=== PATIENT | female | born 1935 | race Caucasian/White ===

== ENCOUNTER 2017-06-18 13:32 | Emergency (ER) | payer OTHER ==
[~2017-06-18] VITALS: Ht 175.3 cm; Wt 95.3 kg
--- NOTE | ~2017-06-18 | EKG ---
[facility] [address] [place] [address] ELECTROCARDIOGRAM REPORT Name: LIAN CRUZ [id number] Admission: 06/18/17 Attend Phys: Discharge: Date of : 34 Report #: [id number] THIS REPORT FOR: //name// [facility] ED Test Date: 2017-06-18 Test Time: 13:41:56 Pat Name: LIAN CRUZ Department: Room: Gender: F Executive Cyber Leader: : 1935 Requested By: Merna Guzman Order Number: [id number] MD: Luis A Coles Measurements Intervals [place] Rate: 69 P: 60 IL: 205 QRS: -4 QRSD: 89 T: 48 QT: 386 QTc: 414 Interpretive Statements Sinus rhythm LVH with secondary repolarization abnormality Inferior infarct, old Anterior infarct, old Compared to ECG 05/21/2016 11:05:36 Left ventricular hypertrophy now present Myocardial infarct finding still present Electronically Signed On 06-18-2017 14:50:51 CDT by Luis A Coles [email or web address] <ELECTRONICALLY SIGNED> By: Luis A Coles MD 06/18/17 1450 134 134 Luis A Coles MD /CORNELIO
[~2017-06-18 13:32] MED LIST: COZAAR 50 MG TA50 M2 PO; LASIX 20 MG TAB20 MG PO; LOPRESSOR50 PO; METOPROLOL SUCC50 MG PO; MUCINEX TA600 MG/TA2 PO; POTASSIUM20 PO; TOPROL XL25 MG PO
[2017-06-18] MEDS ORDERED: EDARBI80 MG PO (13:50)
[2017-06-18 14:07] LABS: ABSOLUTE NEUTROPHILS 9.6 thou/uL (1.4-8.2); BASOPHILS 0.8 % (0.0-2.0); EOSINOPHILS 1.2 % (0.0-3.0); HEMATOCRIT 42.2 % (37.0-47.0); HEMOGLOBIN 13.6 gm/dL (12.0-15.0); LYMPHOCYTES 28.6 % (24.0-44.0); MCH 30.2 pg (26.0-34.0); MCHC 32.2 g/dL (28.0-37.0); MCV 93.8 fL (80.0-100.0); MONOCYTES 5.5 % (1.0-8.0); PLATELET COUNT 224 thou/uL (150-400); POLYS 63.9 % (36.0-66.0); RBC 4.49 mil/uL (4.20-5.00); RDW 14.3 % (10.5-14.5); WBC 15.1 thou/uL (4.0-11.0)
[2017-06-18 14:12] LABS: ANION GAP 14 mmol/L (7-16); BUN 39 mg/dL (7-18); CALCIUM 8.7 mg/dL (8.5-10.1); CHLORIDE 106 mmol/L (98-107); CO2 18 mmol/L (21-32); CREATININE 1.8 mg/dL (0.6-1.0); GLUCOSE 142 mg/dL (74-106); SODIUM 138 mmol/L (136-145)
[2017-06-18 14:15] LABS: MANUAL DIFF NO
[2017-06-18 14:16] LABS: POTASSIUM 4.3 mmol/L (3.5-5.1)
[2017-06-18 14:22] LABS: TROPONIN-I < 0.04 ng/mL (<0.04-0.07)
[2017-06-18 15:00] LABS: URINE BILIRUBIN NEGATIVE (Negative); URINE BLOOD 1+ (Negative); URINE COLOR YELLOW; URINE GLUCOSE-RANDOM* NEGATIVE (Negative); URINE KETONES NEGATIVE (Negative); URINE NITRITE NEGATIVE (Negative); URINE PROTEIN (DIPSTICK) NEGATIVE (Negative); URINE SPECIFIC GRAVITY 1.015 (1.003-1.035); URINE UROBILINOGEN 0.2 E.U./dl (0.2-1.0)
[2017-06-18 15:12] LABS: CASTS None Seen /LPF (None Seen); CRYSTALS None Seen /LPF (None Seen); SQUAMOUS 0-3 Few /LPF (0-3); URINE RBC 0-2 Rare /HPF (0-2)
[2017-06-18] MEDS ORDERED: CIPROFLOXACIN500 M1 PO (15:35)
[2017-06-18 15:50] VITALS: BP 180/81
== END 2017-06-18 15:59 | disposition home or self-care (01) ==
LOC: ER 13:32
PROVIDERS: Emergency Medicine
DX: N39.0 Urinary tract infection, site not specified (principal); D72.829 Elevated white blood cell count, unspecified; N28.9 Disorder of kidney and ureter, unspecified; R19.7 Diarrhea, unspecified; R55 Syncope and collapse; I10 Essential (primary) hypertension; E66.9 Obesity, unspecified; Z87.442 Personal history of urinary calculi; Z88.0 Allergy status to penicillin; Z88.2 Allergy status to sulfonamides; Z68.31 Body mass index [BMI] 31.0-31.9, adult

== ENCOUNTER 2018-10-09 13:55 | Inpatient (IN) | payer OTHER ==
[~2018-10-09] VITALS: Ht 175.3 cm; Wt 114.3 kg
--- NOTE | ~2018-10-09 | D ---
[facility] [place] [address] [place] [address] DISCHARGE SUMMARY Name: LIAN CRUZ Room #: 221-P [facility] IN M.R.#: [id number] Admission: 10/09/18 Attend Phys: Mikki Biswas Discharge: Date of : 34 Report #: [id number] THIS REPORT FOR: //name// CC: Kevin Valerio FINAL DIAGNOSES: 1. Syncope. 2. Vertigo. 3. Atrial fibrillation. 4. Orthostatic hypotension. 5. Acute kidney injury due to prerenal azotemia. 6. Orthostatic hypotension. HOSPITAL COURSE: The patient was admitted with nausea, weakness, dizziness from home. She had orthostatic blood pressure changes in ER. Her home medications were held with the exception of Eliquis. She received low IV fluids overnight. By the second hospital day, her creatinine had decreased down to 1.5. In reviewing her office records, it looks like her normal creatinine, maybe around 1.3. Blood pressures remained stable off her metoprolol and Edarbi and Lasix. She was walking 30 feet with physical therapy. She still complained of some nausea symptoms. CT head and CT abdomen were fairly unremarkable for any acute process. Follow up lab data was showing normal white count. There was no urine culture showing infection. She declined home health or fdc rehabilitation efforts. PHYSICAL EXAMINATION: GENERAL: On the day of discharge, she was resting comfortably in bed. She had an uneventful night according to nursing notes. VITAL SIGNS: Blood pressures are about 150/90 with pulse in the 80s-90s. O2 sats were normal. LUNGS: Clear. HEART: Regular. ABDOMEN: Soft, obese, normoactive bowel sounds. EXTREMITIES: Showed no edema. DISPOSITION: She will be discharged to home with diet and activity as tolerated. She will have Tylenol, Zofran, meclizine, Eliquis and Toprol 50 mg half tablet. For now, she is instructed to hold her Lasix, potassium, Edarbi and ibuprofen until she returns to the office for blood pressure check and follow up lab data. By: 1006 1101 Allan Cornejo MD /nt
[~2018-10-09 13:55] MED LIST changes: +CIPROFLOXACIN500 M1 PO; +EDARBI80 MG PO
[2018-10-09 13:56] VITALS: BP 154/61
[2018-10-09] MEDS ORDERED: ELIQUIS5 MG PO (14:04)
[2018-10-09 14:17] LABS: ABSOLUTE NEUTROPHILS 7.8 thou/uL (1.4-8.2); BASOPHILS 0.9 % (0.0-2.0); EOSINOPHILS 1.1 % (0.0-3.0); HEMATOCRIT 44.9 % (37.0-47.0); HEMOGLOBIN 14.8 gm/dL (12.0-15.0); LYMPHOCYTES 33.9 % (24.0-44.0); MCH 28.8 pg (26.0-34.0); MCHC 32.9 g/dL (28.0-37.0); MCV 87.6 fL (80.0-100.0); MONOCYTES 5.2 % (1.0-8.0); PLATELET COUNT 278 thou/uL (150-400); POLYS 58.9 % (36.0-66.0); RBC 5.13 mil/uL (4.20-5.00); RDW 15.6 % (10.5-14.5); WBC 13.3 thou/uL (4.0-11.0)
[2018-10-09 14:31] LABS: ANION GAP 14 mmol/L (7-16); BUN 25 mg/dL (7-18); CALCIUM 9.1 mg/dL (8.5-10.1); CHLORIDE 101 mmol/L (98-107); CO2 21 mmol/L (21-32); CREATININE 1.6 mg/dL (0.6-1.0); GLUCOSE 186 mg/dL (74-106); POTASSIUM 5.1 mmol/L (3.5-5.1); SODIUM 136 mmol/L (136-145)
[2018-10-09 14:39] LABS: ALBUMIN 3.5 g/dL (3.4-5.0); SGOT 26 U/L (15-37); SGPT 14 U/L (30-65); TOTAL BILIRUBIN 0.6 mg/dL (<0.1-1.0); TOTAL PROTEIN 7.8 g/dL (6.4-8.2); TROPONIN-I <0.06 ng/mL (<0.06)
[2018-10-09] MEDS ORDERED: IBU400 MG PO (14:48)
[2018-10-09 14:53] LABS: URINE BILIRUBIN NEGATIVE (Negative); URINE BLOOD 1+ (Negative); URINE CLARITY CLEAR; URINE COLOR YELLOW; URINE GLUCOSE-RANDOM* NEGATIVE (Negative); URINE KETONES NEGATIVE (Negative); URINE LEUKOCYTES-REFLEX NEGATIVE (Negative); URINE NITRITE-REFLEX NEGATIVE (Negative); URINE PROTEIN (DIPSTICK) TRACE (Negative); URINE UROBILINOGEN 0.2 E.U./dl (0.2-1.0)
[2018-10-09 15:01] LABS: CRYSTALS None Seen /LPF (None Seen); HYALINE CASTS 0-3 Few /LPF (None Seen); SQUAMOUS 0-3 Few /LPF (0-3)
[2018-10-09 15:02] LABS: BACTERIA-REFLEX 1-9 Few /HPF (None Seen); URINE RBC 0-2 Rare /HPF (0-2); URINE WBC-REFLEX None Seen /HPF (0-5)
--- NOTE | 2018-10-09 16:58 | EKG ---
[place] [address] [facility] [place] [address] ELECTROCARDIOGRAM REPORT Name: LIAN CRUZ Room #: 170-11 ADM IN M.R.#: [id number] Admission: 10/09/18 Attend Phys: Mikki Biswas Discharge: Date of : 34 Report #: [id number] THIS REPORT FOR: //name// [facility] ED Test Date: 2018-10-09 Test Time: 14:06:56 Pat Name: LIAN CRUZ Department: Room: 170 Gender: F Automation Test Engineer: . : 1935 Requested By: Sachi Schwab Order Number: [id number] MD: Leoncio Bolaños Measurements Intervals [place] Rate: 107 P: [place]: QRS: 7 QRSD: 101 T: -27 QT: 367 QTc: 490 Interpretive Statements Atrial fibrillation Anterior infarct, old Nonspecific ST segment abnormality Artifact in lead(s) Compared to ECG 06/18/2017 13:41:56 Atrial fibrillation has replaced sinus rhythm Electronically Signed On 10-09-2018 16:58:15 STONE RIGGER by Leoncio Bolaños [email or web address] <ELECTRONICALLY SIGNED> By: Leoncio Bolaños MD, [facility] 10/09/18 1658 1406 1406 Leoncio Bolaños MD, FAC /EPI
--- NOTE | 2018-10-09 16:59 | EKG ---
[place] [address] [facility] [place] [address] ELECTROCARDIOGRAM REPORT Name: LIAN CRUZ Room #: 170-11 ADM IN M.R.#: [id number] Admission: 10/09/18 Attend Phys: Mikki Biswas Discharge: Date of : 34 Report #: [id number] THIS REPORT FOR: //name// [facility] ED Test Date: 2018-10-09 Test Time: 15:05:03 Pat Name: LIAN CRUZ Department: Room: 170 Gender: F Chimney Builder Helper: herbert : 1935 Requested By: Sachi Schwab Order Number: [id number] MD: Leoncio Bolaños Measurements Intervals [place] Rate: 94 P: [place]: QRS: 38 QRSD: 88 T: -28 QT: 355 QTc: 444 Interpretive Statements Atrial fibrillation Septal infarct, old Nonspecific ST segment abnormality Compared to ECG 06/18/2017 13:41:56 Heart rate has slowed Electronically Signed On 10-09-2018 16:59:27 PRACTICE CONSULTANT by Leoncio Bolaños [email or web address] <ELECTRONICALLY SIGNED> By: Leoncio Bolaños MD, [facility] 10/09/18 1659 1505 1505 Leoncio Bolaños MD, FACC /EPI
[2018-10-09 17:18] VITALS: BP 120/72
[2018-10-09 17:54] VITALS: BP 120/72
[2018-10-09 18:28] VITALS: BP 136/81
[2018-10-10] VITALS (7 sets, daily range): BP systolic 136–164; BP diastolic 70–86
--- NOTE | 2018-10-10 03:19 | NUR ---
PT ARRIVED AT SHIFT CHANGE PT ORIENTATED TO ROOM AND CALL LIGHT PT PT USED CALL LIGHT EFFECTIVELY NO ISSUES OVERNIGHT.
[2018-10-10 07:11] LABS: HEMATOCRIT 39.2 % (37.0-47.0); MCH 28.6 pg (26.0-34.0); MCHC 32.7 g/dL (28.0-37.0); MCV 87.6 fL (80.0-100.0); RBC 4.48 mil/uL (4.20-5.00); RDW 15.3 % (10.5-14.5); WBC 9.4 thou/uL (4.0-11.0)
[2018-10-10 07:13] LABS: HEMOGLOBIN 12.8 gm/dL (12.0-15.0)
[2018-10-10 07:21] LABS: CALCIUM 8.4 mg/dL (8.5-10.1); CREATININE 1.6 mg/dL (0.6-1.0)
[2018-10-10 07:22] LABS: POTASSIUM 4.1 mmol/L (3.5-5.1)
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
[2018-10-10] MEDS ORDERED: ACETAMINOPHEN325 M1 PO (10:17)
[2018-10-10] MEDS ORDERED: ONDANSETRON HCL4 M2 PO (10:21)
[2018-10-10 10:57] LABS: ALBUMIN 3.1 g/dL (3.4-5.0); DIRECT BILIRUBIN < 0.1 mg/dL (<0.1-0.3); LIPASE 160 U/L (73-393); SGOT 15 U/L (15-37); SGPT 13 U/L (30-65); TOTAL BILIRUBIN 0.4 mg/dL (<0.1-1.0); TOTAL PROTEIN 6.8 g/dL (6.4-8.2)
--- NOTE | 2018-10-10 11:56 | NUR ---
PT VS STABLE THROUGHOUT MORINING. PT WAS TO BE DISCHARGED HOWEVER SHE C/O DIZZYNESS, WEAKNESS, NAUSEA SO ADDITIONAL MEDS AND TESTS ORDERED. PT TRANSFERRED TO . STS. REPORST CALLED.
--- NOTE | 2018-10-10 12:26 | NUR ---
RECEIVED PT FROM W. ORIENTED PT TO ROOM/CALL LIGHT. PT IS ALERT/ORIENTED X4. DENIES PAIN AT THIS TIME. REPORTS DIZZINESS WITH ACTIVITY. ASSESSMENT IS OTHERWISE NEGATIVE. VITAL SIGNS STABLE. INSTRUCTED PT TO CALL FOR ASSISTANCE IF NEEDING TO GET UP. PT AGREED TO THIS AND KNOWS SHE NEEDS ASSISTANCE. WILL CONTINUE WITH CURRENT PLAN OF CARE.
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
--- NOTE | 2018-10-11 00:55 | NUR ---
Pt A/OX,up with SBA/GB denies any dizziness or light headedness when ambulating. No c/o N/V,pain on assessment.VSS.Voiding without difficulties.Verbalizes feeling a little better today. Encouraged to call for help as needed.Spouse at the bedside for the night. Call light/personal items placed within reach.Will continue to monitor pt.
[2018-10-11 06:52] LABS: HEMATOCRIT 39.5 % (37.0-47.0); MCH 29.1 pg (26.0-34.0); MCV 88.3 fL (80.0-100.0); RBC 4.47 mil/uL (4.20-5.00); RDW 15.9 % (10.5-14.5); WBC 9.2 thou/uL (4.0-11.0)
[2018-10-11 07:07] LABS: CALCIUM 8.6 mg/dL (8.5-10.1); CREATININE 1.5 mg/dL (0.6-1.0); POTASSIUM 4.2 mmol/L (3.5-5.1)
[2018-10-11] MEDS ORDERED: METOPROLOL SUCC50 MG PO (10:02)
[2018-10-11] MEDS ORDERED: ANTIVERT25 MG PO (10:02)
[2018-10-11 11:00] VITALS: BP 151/73
--- NOTE | 2018-10-11 11:18 | NUR ---
ASSUMED CARE OF PATIENT AT 0715, PATIENT DENIES PAIN THIS AM. PATIENT HAS NO IV IN PLACE. PATIENT DENIES DIZZINESS THIS AM, THIS RN INSTRUCTED PATIENT IF DIZZY WHEN STANDING, WAIT UNTIL RESOLVED BEFORE AMBULATING, PATIENT VERBALIZE UNDERSTANDING. DR PA HERE THIS AM, PATIENT WILL DISCHARGE TO HOME, ALL DISCHARGE PAPERWORK SENT WITH PATIENT, ALL PERSONAL BELONGINGS SENT WITH PATIENT. PRESENT AT BEDSIDE, WILL TRANSPORT PATIENT HOME. 2 SCRIPTS GIVEN TO PATIENT.
--- NOTE | 2018-10-11 12:29 | NUR ---
DISCHARGE NOTE: SW reviewed chart and spoke with nursing and attending physician. Pt was transferred to [facility] from . Pt is medically stable for discharge home today. No SW discharge needs identified at this time, but is available to assist should needs arise.
== END 2018-10-11 11:54 | disposition home or self-care (01) | DRG 683 ==
LOC: ER 13:55 → 4W 15:37 → EROBS 15:37 → 4W 17:58 → ENTRNSPT 10-10 11:57 → EDTRNSPTSTS 10-10 12:04 → SICU 10-10 12:21 → EDTRNSPT 10-11 11:18 → EDTRNSPTTYP 10-11 11:18 → SICU 10-11 11:54
PROVIDERS: Internal Medicine Geriatric Medicine; Physician Assistant; ADMIT Internal Medicine
DX: N17.9 Acute kidney failure, unspecified (principal); I50.32 Chronic diastolic (congestive) heart failure; I95.1 Orthostatic hypotension; I48.91 Unspecified atrial fibrillation; E86.0 Dehydration; I11.0 Hypertensive heart disease with heart failure; E66.9 Obesity, unspecified; Z68.37 Body mass index [BMI] 37.0-37.9, adult; Z88.0 Allergy status to penicillin; Z87.442 Personal history of urinary calculi; Z88.2 Allergy status to sulfonamides; Z79.899 Other long term (current) drug therapy
CPT/HCPCS: 10045; 10047; 15000; 15002

== ENCOUNTER 2019-08-04 19:05 | Inpatient (IN) | payer OTHER ==
[~2019-08-04] VITALS: Ht 175.3 cm; Wt 119.3 kg
[~2019-08-04 19:05] MED LIST changes: +ACETAMINOPHEN325 M1 PO; +ANTIVERT25 MG PO; +ELIQUIS5 MG PO; +IBU400 MG PO; +ONDANSETRON HCL4 M2 PO
[2019-08-04 19:06] VITALS: BP 176/104
[2019-08-04 19:39] LABS: ABSOLUTE NEUTROPHILS 8.9 thou/uL (1.4-8.2); BASOPHILS 0.8 % (0.0-2.0); EOSINOPHILS 0.6 % (0.0-3.0); HEMOGLOBIN 9.5 gm/dL (12.0-15.0); LYMPHOCYTES 18.3 % (24.0-44.0); MCH 23.5 pg (26.0-34.0); MCHC 30.8 g/dL (28.0-37.0); MCV 76.2 fL (80.0-100.0); MONOCYTES 5.2 % (1.0-8.0); PLATELET COUNT 346 thou/uL (150-400); POLYS 75.1 % (36.0-66.0); RBC 4.06 mil/uL (4.20-5.00); RDW 17.9 % (10.5-14.5); WBC 11.8 thou/uL (4.0-11.0)
[2019-08-04 19:47] LABS: ANION GAP 12 mmol/L (7-16); BUN 22 mg/dL (7-18); CALCIUM 9.3 mg/dL (8.5-10.1); CHLORIDE 100 mmol/L (98-107); CO2 22 mmol/L (21-32); CREATININE 1.6 mg/dL (0.6-1.0); GLUCOSE 223 mg/dL (74-106); POTASSIUM 3.9 mmol/L (3.5-5.1); SODIUM 134 mmol/L (136-145)
[2019-08-04 19:51] LABS: APTT 27.7 Seconds (24.5-32.8); INR 1.1; PROTIME 11.9 Seconds (9.3-11.4)
[2019-08-04 19:56] LABS: ALBUMIN 3.3 g/dL (3.4-5.0); LIPASE 143 U/L (73-393); SGOT 16 U/L (15-37); SGPT 14 U/L (30-65); TOTAL BILIRUBIN 0.5 mg/dL (<0.1-1.0); TOTAL PROTEIN 7.4 g/dL (6.4-8.2); TROPONIN-I <0.06 ng/mL (<0.06)
[2019-08-04 22:06] VITALS: BP 140/66
[2019-08-04 22:46] VITALS: BP 136/59
[2019-08-04] MEDS ORDERED: KLOR-CON 1010 MEQ PO (23:29)
[2019-08-04] MEDS ORDERED: FUROSEMIDE 20 M20 M1 PO (23:30)
--- NOTE | 2019-08-04 23:32 | NUR ---
PATIENT ARRIVED TO ICU AT 1015 08/04. PATIENT IS ADMITTED WITH CC/TELE ADMISSION STATUS ORDERS. PATIENT RESTING COMFORTABLY IN BED. DR GARCIA NOTIFIED OF ARRIVAL TO ICU.
[2019-08-04 23:52] VITALS: BP 143/60
[2019-08-05 02:03] VITALS: BP 134/74
[2019-08-05 04:11] VITALS: BP 140/71
[2019-08-05 08:06] VITALS: BP 138/69
--- NOTE | 2019-08-05 09:00 | NUR ---
BEDSIDE ECHO IN PROGRSS
[2019-08-05 09:34] LABS: ABSOLUTE RETIC COUNT 0.0798 10^6/uL; OBSERVED RETIC COUNT 1.99 % (0.6-2.6)
[2019-08-05 09:44] LABS: % SATURATION 3 % (20-39); IRON 14 ug/dL (50-170); TIBC 411 ug/dL (250-450)
--- NOTE | 2019-08-05 10:14 | 2DMMODE ---
[facility] [address] [place] [address] 2 D/M-MODE ECHOCARDIOGRAM Name: LIAN CRUZ Room #: 247-P [facility] IN ..#: [id number] Admission: 08/04/19 Attend Phys: Kevin Bernard Discharge: Date of : 34 Report #: [id number] THIS REPORT FOR: //name// APPROVED REPORT Study performed: 08/05/2019 09:11:20 EXAM: Comprehensive 2D, Doppler, and color-flow Echocardiogram Patient Location: ICU Room #: [facility] Status: routine BSA: 2.32 HR: 84 bpm BP: 138/69 mmHg Rhythm: Atrial Fibrillation Other Information Study Quality: Adequate Technically limited study due to obesity. Indications Atrial Fibrillation Hx: HTN, Afib. 2D Dimensions RVDd: 40.48 mm IVSd: 12.62 (7-11mm) LVOT Diam: 21.11 (18-24mm) LVDd: 51.77 mm PWd: 9.08 (7-11mm) LVDs: 38.53 (25-40mm) Aortic Root: 31.41 mm Volumes Left Atrial Volume (Systole) Single Plane 4CH: 107.56 mL Single Plane 2CH: 103.40 mL LA ESV Index: 51.00 mL/m2 Aortic Valve AoV Peak Charles.: 2.22 m/s AO Peak Gr.: 19.65 mmHg LVOT Max P.66 mmHg AO Mean Gr.: 10.96 mmHg AO V2 Mean: 1.58 m/s LVOT Max V: 0.81 m/s AO V2 VTI: 43.13 cm SEBLE Vmax: 1.29 cm2 [facility] [address] [address] 2 D/M-MODE ECHOCARDIOGRAM Name: LIAN CRUZ Room #: 247-P [facility] IN [facility].#: [id number] Admission: 08/04/19 Attend Phys: Kevin Bernard Discharge: Date of : 34 Report #: [id number] Mitral Valve MV Decel. Time: 176.88 ms MV E Max Charles.: 1.27 m/s Pulmonary Valve PV Peak Charles.: 1.18 m/s PV Peak Gr.: 5.78 mmHg Tricuspid Valve TR Peak Charles.: 2.92 m/s TR Peak Gr.: 34.03 mmHg Left Ventricle The left ventricle is normal size. Mild concentric left ventricular hypertrophy. Left ventricular systolic function is mildly decreased. LVEF is 45-50%. This study is not technically sufficient to allow evaluation of the LV diastolic function due to atrial fibrillation. Right Ventricle The right ventricle is normal size. The right ventricular systolic function is normal. Atria Left atrium is severely dilated. Right atrium is moderately dilated. Aortic Valve Aortic valve is moderatley calcified. No aortic regurgitation is present. There is mild to moderate valvular aortic stenosis. Calculated aortic valve area is 1.5 cm2 with maximum pressure gradient of 15 mmHg and mean pressure gradient of 9 mmHg. Mitral Valve Mitral valve leaflets are mildly thickened. Moderate mitral annular calcification. Moderate mitral regurgitation. No evidence of mitral valve stenosis. Tricuspid Valve The tricuspid valve is normal in structure. Moderate tricuspid regurgitation. Estimated PAP is 35mmHg plus the right atrial pressure. Pulmonic Valve Pulmonic valve is not well visualized. [employer] [facility] [address] [place] [address] 2 D/M-MODE ECHOCARDIOGRAM Name: LIAN CRUZ Room #: 247-P ADM IN M.R.#: [id number] Admission: 08/04/19 Attend Phys: Kevin Bernard Discharge: Date of : 34 Report #: [id number] The aortic root is normal in size. Ascending aorta is not well visualized. IVC is not well visualized. Pericardium There is no pericardial effusion. Left pleural effusion noted. <Conclusion> The left ventricle is normal size. Mild concentric left ventricular hypertrophy. Left ventricular systolic function is mildly decreased. LVEF is 45-50%. This study is not technically sufficient to allow evaluation of the LV diastolic function due to atrial fibrillation. The right ventricle is normal size. Left atrium is severely dilated. Right atrium is moderately dilated. Aortic valve is moderatley calcified. There is mild to moderate valvular aortic stenosis. Calculated aortic valve area is 1.5 cm2 with maximum pressure gradient of 15 mmHg and mean pressure gradient of 9 mmHg. Mitral valve leaflets are mildly thickened. Moderate mitral annular calcification. Moderate mitral regurgitation. Moderate tricuspid regurgitation. Estimated PAP is 35mmHg plus the right atrial pressure. The aortic root is normal in size. There is no pericardial effusion. Left pleural effusion noted. <ELECTRONICALLY SIGNED> By: Bay Powell MD, FACC 08/05/19 1014 1014 1014 Bay Powell MD, FACC /INF
[2019-08-05 11:14] VITALS: BP 114/44
--- NOTE | 2019-08-05 15:50 | NUR ---
met with patient who admits with AFIB. Patient resides at home with spouse. She reports all needs on one level. Bedroom upstairs but she does not use bedroom. Patient reports occationally uses a cane for ambulation but otherwise not needed. She felt weak block captain. PCP Dr Valerio. Plan home once stable. Casemgt following.
[2019-08-05 16:02] VITALS: BP 106/39
--- NOTE | 2019-08-05 16:30 | NUR ---
PATIENT UP TO COMMODE WITH ONE PERSON ASSIST, VOIDING AND PASSING FLATUS. STATES THAT SHE HAS MOTION SICKNESS WHEN GETTING BACK TO BED, RELEIVED WITH COOL CLOTH TO FACE. MONITOR SHOWING A FIB WITH CONTROLLED RATE. PATIENT UPDATED TO THE POC AND REASSURANCE GIVEN.
--- NOTE | 2019-08-05 19:14 | EKG ---
[place] [address] [address] [place] [address] ELECTROCARDIOGRAM REPORT Name: LIAN CRUZ Room #: 247-P ADM IN M.R.#: [id number] Admission: 08/04/19 Attend Phys: Mikki Biswas Discharge: Date of : 34 Report #: [id number] THIS REPORT FOR: //name// [facility] ED Test Date: 2019-08-04 Test Time: 19:19:35 Pat Name: LIAN CRUZ Department: Room: 247 Gender: F Life Scientists: MARY ANN : 1935 Requested By: Judson Bender Order Number: [id number] MD: Leoncio Bolaños Measurements Intervals [place] Rate: 131 P: [place]: QRS: 33 QRSD: 139 T: 208 QT: 349 QTc: 516 Interpretive Statements Atrial fibrillation Ventricular premature complex Left bundle branch block Compared to ECG 10/09/2018 15:05:03 Ventricular premature complex(es) now present Left bundle-branch block now present Electronically Signed On 08-05-2019 19:14:13 EMPLOYEE TRAINING SPECIALIST by Leoncio Bolaños [email or web address] <ELECTRONICALLY SIGNED> By: Leoncio Bolaños MD, [facility] 08/05/191913 18 18 Leoncio Bolaños MD, [facility] /EPI
[2019-08-05 21:02] VITALS: BP 152/76
[2019-08-06] VITALS (11 sets, daily range): BP systolic 119–147; BP diastolic 52–109
[2019-08-06 05:44] LABS: HEMATOCRIT 29.6 % (37.0-47.0); MCHC 30.3 g/dL (28.0-37.0); RBC 3.89 mil/uL (4.20-5.00); WBC 11.2 thou/uL (4.0-11.0)
[2019-08-06 05:54] LABS: CALCIUM 8.4 mg/dL (8.5-10.1); POTASSIUM 3.5 mmol/L (3.5-5.1)
--- NOTE | 2019-08-06 12:58 | H ---
[facility] [place] [address] [place] [address] HISTORY AND PHYSICAL Name: LIAN CRUZ Room #: 247-P ADM IN M.R.#: [id number] Admission: 08/04/19 Attend Phys: Mikki Biswas Discharge: Date of : 34 Report #: [id number] THIS REPORT FOR: //name// CC: Kevin Valerio DATE OF SERVICE: 08/05/2019 CHIEF COMPLAINT: Shortness of breath. HISTORY OF PRESENT ILLNESS: The patient is an 84-year-old female who was admitted through the ER with shortness of breath. She said for a couple of days she felt fullness in her lower abdomen and some shortness of breath. Gradually, the symptoms progressed to the point of orthopnea and even shortness of breath at rest. She said with activity she felt heaviness in her lower chest and upper abdomen. She felt "full" and like she could not get a deep breath. She finally came to the Emergency Room and was diagnosed with rapid atrial fibrillation and congestive heart failure. PAST MEDICAL HISTORY: Chronic AFib, chronic anticoagulation, hypertension, history of vertigo, history of pericarditis in the 1960s. PAST SURGICAL HISTORY: She has had an endometrial biopsy, kidney stone. FAMILY HISTORY: Noncontributory. SOCIAL HISTORY: She lives at home. No chronic alcohol or tobacco use. ALLERGIES: CLONIDINE, PENICILLIN AND SULFA. MEDICATIONS: Eliquis, metoprolol, meclizine, Zofran and Tylenol. REVIEW OF SYSTEMS: Denies headache, chest pain, shortness of breath, abdominal pain, dysuria, syncope, but did complain of some nausea when she got up with the nurse to the bedside commode. PHYSICAL EXAMINATION: VITAL SIGNS: Temperature 36.4, pulse 86, respirations 20, blood pressure 138/69, O2 sat 96% on room air. GENERAL: She is awake and alert, sitting up in bed, in no distress. HEAD AND NECK: Unremarkable. LUNGS: Clear. HEART: Irregular. ABDOMEN: Soft, normoactive bowel sounds. EXTREMITIES: No edema. NEUROLOGIC: Motor strength 5/5 throughout. She recognized me. [facility] [address] [place] [address] HISTORY AND PHYSICAL Name: LIAN CRUZ Room #: 247-P [facility] IN .R.#: [id number] Admission: 08/04/19 Attend Phys: Mikki Biswas Discharge: Date of : 34 Report #: [id number] LABORATORY DATA: Serum iron was low, hemoglobin 9.5, MCV 76, creatinine 1.6. BNP was 4600. CT of the abdomen was unremarkable. Chest x-ray suggested congestive heart failure. Echo shows left ventricular function 45%-50%. ASSESSMENT: 1. Rapid atrial fibrillation. 2. Iosbg-cg-mdrycka systolic heart failure. 3. Microcytic anemia. 4. Acute kidney injury, likely due to shock kidney from atrial fibrillation. PLAN: She has been treated in ICU overnight with rate control with IV diltiazem, which has now been switched off and home medicines were resumed. I will order IV iron infusion. The Cardiology Service is following her situation as well. So far, she has a guaiac negative stool. <ELECTRONICALLY SIGNED> By: Allan Cornejo MD 08/06/19 1258 1407 1417 Allan Cornejo MD /nt
--- NOTE | 2019-08-06 13:06 | NUR ---
ASSUMED CARE AT 0700. PATIENT A&O X 4, PLEASANT AND COOPERATIVE WITH CARES. DENIES COMPLAINTS OF PAIN.BED BATH ORAL CARE IS COMPLETE. PATIENT WORKED WITH PT IN THE ROOM FOR AT LEAST 30 MIN OR SO PATIENT WAS ABLE TO TOLERATE IT WELL. PATIENT UP WITH SBA. PATIENT HAS CCU ORDERS, AWAITING A BED AT THIS TIME. NO FURTHER CONCENRS AT THIS TIME. WILL CONTINUE TO MONITOR AND CARE PER PLAN OF CARE.
--- NOTE | 2019-08-06 17:35 | NUR ---
1735- called report to CCU RN,
[2019-08-06 22:42] LABS: URINE BILIRUBIN NEGATIVE (Negative); URINE BLOOD 2+ (Negative); URINE CLARITY TURBID; URINE COLOR YELLOW; URINE GLUCOSE-RANDOM* NEGATIVE (Negative); URINE KETONES NEGATIVE (Negative); URINE PROTEIN (DIPSTICK) 2+ (Negative); URINE SPECIFIC GRAVITY 1.015 (1.005-1.035); URINE UROBILINOGEN 0.2 E.U./dl (0.2-1.0)
[2019-08-06 22:54] LABS: URINE LEUKOCYTES-REFLEX 3+ (Negative); URINE NITRITE-REFLEX POSITIVE (Negative)
[2019-08-06 22:57] LABS: BACTERIA-REFLEX 1-9 Few /HPF (None Seen); CASTS None Seen /LPF (None Seen); CRYSTALS None Seen /LPF (None Seen); MUCUS 0-3 Light strn/LPF (None Seen); SQUAMOUS 0-3 Few /LPF (0-3); URINE RBC 0-2 Rare /HPF (0-2); URINE WBC-REFLEX >25 Many /HPF (0-5); WBC CLUMPS Moderate (None Seen)
--- NOTE | 2019-08-06 23:33 | NUR ---
ASSUMED PT CARE AT 1900. PT A/OX4, VITAL SIGNS STABLE. NO COMPLAINTS OF PAIN, ASSESSMENT CHARTED. FALL PRECAUTIONS MAINTAINED, CLOSE TO NURSING STATION. PT RESTING COMFORTABLY IN BED. REPORT GIVEN TO ONCOMING NURSE.
--- NOTE | 2019-08-07 04:13 | NUR ---
ASSUMED CARE FROM EVENING NURSE, ASSESSMENT COMPLETED AND CHARTED , ASSISTED PT TO BR SEVERAL TIME GAIT UNSTEADY AND DYSPNEA NOTED WITH ACTVITY, BUT PT RECOVERS ONCE BACK TO BED. CORE DRILLER SHOWS AFIB BBB. BED ALARM FOR SAFETY . WILL CONTINUE WITH CURRENT PLAN OF CARE AND WILL REPORT CHANGES OR ABNORMAL FINDINGS.
[2019-08-07 04:47] VITALS: BP 126/72
[2019-08-07 05:08] LABS: HEMATOCRIT 27.6 % (37.0-47.0); HEMOGLOBIN 8.5 gm/dL (12.0-15.0); MCH 23.3 pg (26.0-34.0); MCHC 30.9 g/dL (28.0-37.0); MCV 75.6 fL (80.0-100.0); RBC 3.65 mil/uL (4.20-5.00); RDW 17.9 % (10.5-14.5); WBC 12.1 thou/uL (4.0-11.0)
[2019-08-07 05:34] LABS: CALCIUM 8.8 mg/dL (8.5-10.1); CREATININE 1.6 mg/dL (0.6-1.0); POTASSIUM 3.4 mmol/L (3.5-5.1)
[2019-08-07 08:00] VITALS: BP 129/70
[2019-08-07 12:00] VITALS: BP 131/68
--- NOTE | 2019-08-07 13:58 | NUR ---
therapy evals recommending possible HH at [place]. Discussed with patient who reports she doesnt want HH she wants to be alone. She has no idea what she needs shes sick today and cannt discuss. Gave patient provider list for HH.
[2019-08-07 16:16] VITALS: BP 139/74
--- NOTE | 2019-08-07 16:55 | EKG ---
[address] [place] [address] ELECTROCARDIOGRAM REPORT Name: LIAN CRUZ Room #: 216-P ADM IN M.R.#: [id number] Admission: 08/04/19 Attend Phys: Mikki Biswas Discharge: Date of : 34 Report #: [id number] THIS REPORT FOR: //name// [facility] Test Date: 2019-08-06 Test Time: 08:29:44 Pat Name: LIAN CRUZ Department: Room: 216 Gender: F Belt Picker: Basil THOMPSON : 1935 Requested By: Char Roe Order Number: [id number] MD: Leoncio Bolaños Measurements Intervals [place] Rate: 95 P: [place]: QRS: 33 QRSD: 142 T: 137 QT: 400 QTc: 503 Interpretive Statements Atrial fibrillation IVCD, consider atypical LBBB Compared to ECG 08/04/2019 19:19:35 Ventricular premature complex(es) no longer present Electronically Signed On 08-07-2019 16:54:51 DERMATOLOGY TEACHER by Leoncio Bolaños [email or web address] <ELECTRONICALLY SIGNED> By: Leoncio Bolaños MD, [facility] 08/07/19 1654 0829 Leoncio Bolaños MD, [facility] /EPI
--- NOTE | 2019-08-07 17:16 | EKG ---
[address] [address] ELECTROCARDIOGRAM REPORT Name: LIAN CRUZ Room #: 216-P ADM IN M.R.#: [id number] Admission: 08/04/19 Attend Phys: Mikki Biswas Discharge: Date of : 33 Report #: [id number] THIS REPORT FOR: //name// [facility] Test Date: 2019-08-07 Test Time: 07:18:45 Pat Name: LIAN CRUZ Department: Room: 216 P Gender: F Component Assembler: CASSIE : 1935 Requested By: Allan Cornejo Order Number: [id number] MD: Leoncio Bolaños Measurements Intervals [place] Rate: 93 P: RI: QRS: 17 QRSD: 147 T: 166 QT: 385 QTc: 479 Interpretive Statements Atrial fibrillation Left bundle branch block Compared to ECG 08/04/2019 19:19:35 No significant change was found Electronically Signed On 08-07-2019 17:16:32 STATION SUPERVISOR by Leoncio Bolaños [email or web address] <ELECTRONICALLY SIGNED> By: Leoncio Bolaños MD, [facility] 08/07/19 1716 0718 7 Leoncio Bolaños MD, FACC /EPI
--- NOTE | 2019-08-07 18:33 | NUR ---
PT ALERT AND ORIENTED. RECEIVED PRN NAUSEA MED WITH PARTIAL RELIEF. PARTICIPATED IN PT AND OT. FALL PRECAUTION IN PLACE. WILL CONTINUE TO MONITOR.
[2019-08-07 19:21] VITALS: BP 152/52
[2019-08-08 03:08] VITALS: BP 131/61
[2019-08-08 05:32] LABS: HEMATOCRIT 28.9 % (37.0-47.0); HEMOGLOBIN 8.8 gm/dL (12.0-15.0); MCH 23.5 pg (26.0-34.0); MCHC 30.5 g/dL (28.0-37.0); MCV 77.2 fL (80.0-100.0); RBC 3.75 mil/uL (4.20-5.00); RDW 18.1 % (10.5-14.5); WBC 13.7 thou/uL (4.0-11.0)
--- NOTE | 2019-08-08 05:40 | NUR ---
ASSUMED CARE AT 1900. PT ALERT AND ORIENTED. AFIB ON THE MONITOR RATE CONTROLED. NYSTATIN POWDER FOR GROIN REDNESS. VITALS STABLE. PT STEADY ON HER FEET, AMBULATES STEADLY TO THE BATHROOM. NO C/O CHEST PAIN, NAUSEA, VOMITING OR DIARRHEA. PT CURRENTLY STABLE. WILL CONTINUE WITH PLAN OF CARE.
[2019-08-08 05:43] LABS: CALCIUM 8.6 mg/dL (8.5-10.1); CREATININE 1.7 mg/dL (0.6-1.0)
[2019-08-08 07:45] VITALS: BP 131/49
[2019-08-08 11:25] VITALS: BP 124/61
--- NOTE | 2019-08-08 15:13 | NUR ---
Case discussed with the care team. Likely dc to home this weekend. Pt is adament she does not want any HH as she does not like people in her home. No cm interventions indicated at this time.
[2019-08-08 15:14] VITALS: BP 124/61
[2019-08-08 15:50] VITALS: BP 122/62
--- NOTE | 2019-08-08 18:24 | NUR ---
PT ALERT AND ORIENTED. VSS. REPORT HAVING LEFT SHOULDER PAIN WITH MOVEMENT. REFUSED THE NEED FOR PAIN MEDICATION. ABX GIVEN. NO CONCERNS AT THIS TIME. WILL CONTINUE TO MONITOR.
[2019-08-08 20:03] VITALS: BP 121/63
--- NOTE | 2019-08-09 04:07 | NUR ---
ASSESSMENT DOCUMENTED.PT BEEN RESTING IN NO ACUTE DISTRESS,A/OX4.VSS.ON RA W/O RESP DISTRESS.AFIB W/BBBB ON MONITOR.DENIES PAIN UPON URINATION.ON ABT FOR UTI,TOLERATING.RIGHT ARM WITH BRUISING AND SOME REDNESS FROM IV INFILTRATION,HEAT COMPRESSION APPLIED,PT REFUSED COLD COMPRESSION.DENIES ANY OTHER NEEDS AT THIS TIME.WILL CONT TO MONITOR PER POC.
[2019-08-09 04:15] VITALS: BP 119/57
[2019-08-09 07:30] VITALS: BP 122/50
[2019-08-09] MEDS ORDERED: CIPRO500 MG PO (08:40)
[2019-08-09] MEDS ORDERED: ELIQUIS2.5 MG PO (08:41)
[2019-08-09] MEDS ORDERED: METOPROLOL SUCC50 MG PO (08:41)
[2019-08-09] MEDS ORDERED: DILTIAZEM 24HR180 M1 PO (08:41)
[2019-08-09] MEDS ORDERED: K-DUR 20 MEQ T20 MEQ PO (08:42)
[2019-08-09] MEDS ORDERED: LASIX 20 MG TAB20 MG PO (08:42)
[2019-08-09 09:35] VITALS: BP 124/61
--- NOTE | 2019-08-09 10:52 | NUR ---
AAOX4. FLAT AFFECT. AFIB PER TELE. BEING DISCHARGED TO HOME WITH SELF CARE. SHE HAS TO OBTAIN TRANSPORTATION. LAST IRON INFUSION GIVEN. URINE STAINED WITH PYRIDIUM. WILL CONTINUE TO FOLLOW CLOSELY.
[2019-08-09 11:17] VITALS: BP 121/57
--- NOTE | 2019-08-11 13:20 | D ---
[facility] [place] [address] DISCHARGE SUMMARY Name: LIAN CRUZ Room #: 216-P [facility] IN M.R.#: [id number] Admission: 08/04/19 Attend Phys: Mikki Biswas Discharge: 08/09/19 Date of : 33 Report #: [id number] THIS REPORT FOR: //name// CC: Kevin Valerio FINAL DIAGNOSES: 1. Rapid atrial fibrillation. 2. Acute on chronic systolic heart failure. 3. Microcytic anemia. 4. Urinary tract infection. HOSPITAL COURSE: The patient was admitted from home with shortness of breath and chest palpitations. In the ER, she was diagnosed with rapid atrial fibrillation and congestive heart failure. She was admitted to ICU with diuretic therapy and IV diltiazem. Cardiology service followed her. Echocardiogram was obtained showing an ejection fraction around 40%. She has noted with microcytic anemia and heme negative stool x 1. She received iron infusions. Eliquis dose was reduced. She also had a urine culture growing Proteus mirabilis with sensitivities still pending at the time of discharge with Cipro was added. She had some nausea symptoms earlier in the morning, it sounds like her vertigo symptoms. Otherwise, she had no other interval complications. She declined rehab options or home health. PHYSICAL EXAMINATION: On the day of discharge: GENERAL: She was awake and alert. VITAL SIGNS: Stable. LUNGS: Clear. HEART: Regular. ABDOMEN: Soft, normoactive bowel sounds. EXTREMITIES: No edema. DISPOSITION: She will be discharged to home with diet and activity as tolerated. Medication changes will be Eliquis 2.5 twice a day, metoprolol 50 mg daily, Cardizem CD 180 mg daily, Lasix 40 mg daily, potassium 20 mEq daily and Cipro for 5 days. Follow up in the office in 3-5 days with a chemistry and then in 2-[address] Valerio for office followup CBC and BMP. <ELECTRONICALLY SIGNED> By: Allan Cornejo MD 08/11/19 1320 0846 0852 Allan Cornejo MD /nt
== END 2019-08-09 14:54 | disposition home or self-care (01) | DRG 291 ==
LOC: ER 19:05 → EROBS 21:03 → ICU 21:03 → 2N 08-06 18:24
PROVIDERS: Emergency Medicine; Internal Medicine; Internal Medicine Geriatric Medicine; Nurse Practitioner Adult Health; ADMIT Internal Medicine
DX: I13.0 Hypertensive heart and chronic kidney disease with heart failure and stage 1 through stage 4 chronic kidney disease, or unspecified chronic kidney disease (principal); I50.43 Acute on chronic combined systolic (congestive) and diastolic (congestive) heart failure; N39.0 Urinary tract infection, site not specified; I48.20 Chronic atrial fibrillation, unspecified; I48.21 Permanent atrial fibrillation; N17.9 Acute kidney failure, unspecified; E66.9 Obesity, unspecified; D50.9 Iron deficiency anemia, unspecified; E78.00 Pure hypercholesterolemia, unspecified; N18.9 Chronic kidney disease, unspecified; Z28.21 Immunization not carried out because of patient refusal; Z87.442 Personal history of urinary calculi; Z68.38 Body mass index [BMI] 38.0-38.9, adult; Z88.0 Allergy status to penicillin; Z88.2 Allergy status to sulfonamides; Z88.8 Allergy status to other drugs, medicaments and biological substances; Z79.01 Long term (current) use of anticoagulants; Z79.82 Long term (current) use of aspirin; Z79.899 Other long term (current) drug therapy; Z82.49 Family history of ischemic heart disease and other diseases of the circulatory system
CPT/HCPCS: 10081; 10203

== ENCOUNTER 2020-07-06 12:21 | Inpatient (IN) | payer OTHER ==
[~2020-07-06] VITALS: Ht 175.3 cm; Wt 118.8 kg
[~2020-07-06 12:21] MED LIST changes: +CIPRO500 MG PO; +DILTIAZEM 24HR180 M1 PO; +ELIQUIS2.5 MG PO; +FUROSEMIDE 20 M20 M1 PO; +K-DUR 20 MEQ T20 MEQ PO; +KLOR-CON 1010 MEQ PO
[2020-07-06 12:22] VITALS: BP 151/61
[2020-07-06 13:05] LABS: WBC 10.7 thou/uL (4.0-11.0)
[2020-07-06 13:07] LABS: HEMATOCRIT 24.9 % (37.0-47.0); HEMOGLOBIN 7.2 gm/dL (12.0-15.0); MCH 18.4 pg (26.0-34.0); MCV 63.4 fL (80.0-100.0); PLATELET COUNT 391 thou/uL (150-400); RBC 3.93 mil/uL (4.20-5.00); RDW 21.1 % (10.5-14.5)
[2020-07-06 13:15] LABS: ANION GAP 11 mmol/L (7-16); BUN 18 mg/dL (7-18); CALCIUM 8.4 mg/dL (8.5-10.1); CHLORIDE 105 mmol/L (98-107); CO2 26 mmol/L (21-32); CREATININE 1.3 mg/dL (0.6-1.0); GLUCOSE 143 mg/dL (74-106); POTASSIUM 3.9 mmol/L (3.5-5.1); SODIUM 142 mmol/L (136-145)
[2020-07-06 13:39] LABS: ALBUMIN 3.1 g/dL (3.4-5.0); SGOT 15 U/L (15-37); SGPT 11 U/L (30-65); TOTAL BILIRUBIN 0.5 mg/dL (0.2-1.0); TOTAL PROTEIN 7.2 g/dL (6.4-8.2); TROPONIN-I <0.06 ng/mL (<0.06)
[2020-07-06 13:58] LABS: ABSOLUTE NEUTROPHILS 8.1 thou/uL (1.4-8.2); ANISOCYTOSIS 2+; OVALOCYTES 1+; POIKILOCYTOSIS 1+
[2020-07-06 13:59] LABS: HYPOCHROMASIA 2+; MICROCYTES 2+; TARGET CELLS OCCASIONAL
[2020-07-06 14:01] LABS: POLYCHROMASIA OCCASIONAL; SCHISTOCYTES OCCASIONAL
--- NOTE | 2020-07-06 14:13 | EKG ---
[facility] [place] [address] ELECTROCARDIOGRAM REPORT Name: LIAN CRUZ Room #: REG [facility]#: [id number] Admission: 07/06/20 Attend Phys: Discharge: Date of : 33 Report #: [id number] THIS REPORT FOR: cc: Kevin Valerio MD, Christopher B. MD Lundgren, Craig H. 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 : 1935 Requested By: Gene Shankar Order Number: [id number] MD: Leoncio Bolaños Measurements Intervals [place] Rate: 82 P: [place]: QRS: 75 QRSD: 143 T: -62 QT: 421 QTc: 492 Interpretive Statements Atrial fibrillation Left bundle branch block Compared to ECG 08/07/2019 07:18:45 No significant change was found Electronically Signed On 07-06-2020 14:13:14 CDT by Leoncio Bolaños [email or web address] <ELECTRONICALLY SIGNED> By: Leoncio Bolaños MD, [facility] 07/06/20 1413 Leoncio Bolaños MD, [facility] /EPI
[2020-07-06 14:22] LABS: INR 1.3; PROTIME 13.3 Seconds (9.3-11.4)
[2020-07-06 15:11] LABS: % SATURATION 5 % (20-39); IRON 21 ug/dL (50-170); TIBC 422 ug/dL (250-450)
[2020-07-06 17:38] VITALS: BP 113/50; BP 123/79; BP 125/64; BP 130/75; BP 96/47
[2020-07-07 01:23] VITALS: BP 128/57
[2020-07-07 02:04] VITALS: BP 144/76
[2020-07-07 03:00] VITALS: BP 152/78
[2020-07-07 06:04] LABS: HEMATOCRIT 26.9 % (37.0-47.0); HEMOGLOBIN 8.2 gm/dL (12.0-15.0); MCH 20.2 pg (26.0-34.0); MCHC 30.5 g/dL (28.0-37.0); MCV 66.2 fL (80.0-100.0); PLATELET COUNT 344 thou/uL (150-400); RBC 4.07 mil/uL (4.20-5.00); RDW 23.8 % (10.5-14.5); WBC 9.6 thou/uL (4.0-11.0)
[2020-07-07 06:31] LABS: ALBUMIN 3.2 g/dL (3.4-5.0); CALCIUM 8.7 mg/dL (8.5-10.1); CREATININE 1.4 mg/dL (0.6-1.0); POTASSIUM 3.3 mmol/L (3.5-5.1); TOTAL PROTEIN 7.1 g/dL (6.4-8.2)
[2020-07-07 08:30] VITALS: BP 155/63
--- NOTE | 2020-07-07 08:38 | NUR ---
PT ARRIVED FROM ER VIA CART, PLACED IN ROOM 350. ADMISSION ASSESSMENTS COMPLETED. FIRST COVID PCR SWAB IS REPORTEDLY NEGATIVE. PT INFORMED. ORDERS IN PROGRESS SEE CHARTING.
[2020-07-07 09:03] LABS: ABSOLUTE NEUTROPHILS 6.3 thou/uL (1.4-8.2); ANISOCYTOSIS 3+; HYPOCHROMASIA 3+; MICROCYTES 3+
[2020-07-07 09:04] LABS: OVALOCYTES 1+
[2020-07-07 11:51] VITALS: BP 134/62
--- NOTE | 2020-07-07 13:56 | NUR ---
ASSUMED PATIENT CARE THIS AM AT APPROXIMATELY 0700. PATIENT IS AWAKE ALERT ORIENTED, ASSESSMENT AND MEDS CHARTED. O2 SAT STABLE ON ROOM AIR. NO DISTRESS NOTED. IV ACCESS LOST THIS AM, LEAKINF AROUND SITE AND PAIN AT SITE NOTED. THIS NURSE ATTEMPTED RESTICK X2 UNSUCESSFUL, CALLED IV TEAM TO START NEW IV AND 24G STARTED. SEE IV DOCUMENTATION. PATIENT ISOLATION DISCONTINUED THIS AM PER DR. GARCIA/ RACHELL LAU, RN. PATIENT AND HOUSE SUPERVIOSR MADE AWARR OF D/C ISOLATION ORDERS. PATIENT HEART RATE ELEVATED, INCREASED TO 150S WITH OOB ACTIVITY, PATIENT DENIES CHEST PAIN, BUT IN AFIB RYTHMN ON MONITOR. DECREASED TO 90S AT REST, DR PEARCE MADE AWARE AND NEW ORDERS GIVEN FOR ADDITIONAL DOSE OF CARDIZEM. WILL CTM
--- NOTE | 2020-07-07 15:48 | NUR ---
INITIAL ASSESSMENT: SW reviewed chart and spoke with nursing and attending physician. Pt is in Enhanced Isolation due to positive COVID test. Pt is afebrile and on 2L of O2. Pt is on IV abx. Pt is having convalescent plasma today and is completing course of Remdesivir. SW spoke with pt via phone. Introduced role of SW. Pt is alert/orientated. Pt reports she works at [employer]. Pt lives at home and is normally independent with ADLs. Pt 's PCP is Dr. Venkatesh Au. Pt requests SW to call back at a later time. SW is following to assist as needed with discharge planning.
--- NOTE | 2020-07-07 15:49 | NUR ---
INITIAL ASSESSMENT: SW reviewed chart and spoke with nursing and attending physician. Pt was admitted from home due to CHF/anemia. Pt placed in Enhanced Isolation to r/o COVID-19. First test is negative. Pt is afebrile and not requiring O2. Enhanced Isolation precautions have been discontinued. Pt to have EGD/colonoscopy tomorrow. SW spoke with pt via phone. Introduced role of SW. Pt is alert/orientated x 4. Pt reports she lives at home with her . Prior to admission, pt was independent with ADLs. Pt does have a cane. 2 steps to enter the home. No steps inside. No hx of HH services or post-acute placement. Pt's PCP is Dr. Wing Valerio. Pt's plan is to return home when medically stable. Pt states she does not want HH when discharged. SW is following to assist as needed with discharge planning.
[2020-07-07 19:21] VITALS: BP 118/63
[2020-07-08 05:13] VITALS: BP 124/56
--- NOTE | 2020-07-08 05:21 | NUR ---
ASSUMED CARE AT 1900. PT REPORTS FEELING FULL W/ SOME NAUSEA R/T BOWEL PREP; PT'S STOOL WAS COMPLETELY CLEAR, YELLOW WATER BY 1999. PT'S HR UP TO 120'S WITH ACTIVITY AND C/O SOB THAT IMPROVES AFTER RESTING FOR A FEW MINUTES. STILL HAS MILD PITTING EDEMA IN LEGS, L>R. NO OTHER CONCERNS, WILL CONTINUE TO MONITOR.
[2020-07-08 06:37] LABS: HEMATOCRIT 26.5 % (37.0-47.0); MCH 19.8 pg (26.0-34.0); MCHC 30.1 g/dL (28.0-37.0); RBC 4.01 mil/uL (4.20-5.00); RDW 23.3 % (10.5-14.5); WBC 8.2 thou/uL (4.0-11.0)
[2020-07-08 06:57] LABS: CALCIUM 8.6 mg/dL (8.5-10.1); CREATININE 1.2 mg/dL (0.6-1.0); MAGNESIUM 1.8 mg/dL (1.8-2.4); POTASSIUM 3.2 mmol/L (3.5-5.1)
[2020-07-08 07:25] VITALS: BP 136/65
--- NOTE | 2020-07-08 09:46 | NUR ---
PATIENT WENT TO OR FOR EGD AT 0745.
[2020-07-08 11:12] VITALS: BP 129/46
--- NOTE | 2020-07-08 11:44 | NUR ---
SW reviewed chart and spoke with nursing and attending physician. Enhanced Isolation precautions have been discontinued. Pt to have EGD/colonoscopy today. Anticipate discharge home tomorrow. Therapy evals have been ordered to assess pt for discharge needs. SW is following to assist as needed with discharge planning.
[2020-07-08 15:09] VITALS: BP 113/50
--- NOTE | 2020-07-08 17:58 | NUR ---
ASSUMED PATIENT CARE AT 0700. PATIENT HAD EKG AND COLONOSCOPY. TOLERATED WELL. AND TOLERATED DIET WELL. FEELS GENERLIZED WEAKNESS.NO CHEST PAIN . SLOWLY TOWARDS POC GOALS.
[2020-07-08 19:11] VITALS: BP 126/54
[2020-07-09 04:18] VITALS: BP 130/45
[2020-07-09 05:15] LABS: CALCIUM 8.2 mg/dL (8.5-10.1); CREATININE 1.7 mg/dL (0.6-1.0); MAGNESIUM 1.9 mg/dL (1.8-2.4); POTASSIUM 3.8 mmol/L (3.5-5.1)
[2020-07-09 05:31] LABS: HEMATOCRIT 24.9 % (37.0-47.0); HEMOGLOBIN 7.4 gm/dL (12.0-15.0); MCH 19.6 pg (26.0-34.0); MCHC 29.6 g/dL (28.0-37.0); MCV 66.3 fL (80.0-100.0); RBC 3.75 mil/uL (4.20-5.00); RDW 24.2 % (10.5-14.5); WBC 9.4 thou/uL (4.0-11.0)
--- NOTE | 2020-07-09 06:16 | NUR ---
ASSUMED CARE AT 1900. PT DENIES PAIN. REPORTS STILL FEELING NAUSEATED AND WEAK OVERNIGHT, DENIED ANY EMESIS; ONE FORMED STOOL THIS AM. HR AT HS WAS UPPER 90'S--LOW 100'S AND BP STABLE, GAVE SCHEDULED METOPROLOL WHICH LOWERED HR TO 70'S AND BP STABLE. APPLIED ZGUARD TO REDDENED AREA ON BUTTOCKS. NO OTHER CONCERNS, WILL CONTINUE TO MONITOR.
[2020-07-09 07:05] VITALS: BP 120/44
[2020-07-09 11:04] VITALS: BP 117/44
--- NOTE | 2020-07-09 11:26 | NUR ---
YANELI reviewed chart and spoke with nursing and attending physician. Pt is s/p EGD and colonoscopy. Pt's hemoglobin low today. Isolation precautions have been discontinued. Pt to transfer off 3W when room becomes available. YANELI spoke with pt via phone to discuss discharge plan. Pt states she is short of breath and nauseaous when she gets up. Pt worked with therapy this morning. Pt states she does not feel ready to go home quite yet. SW discussed home with HH v. post acute care. Pt is hopeful to discharge home when medically stable. Pt is not wanting to go to post-acute care. SW is following to assist as needed with discharge planning.
[2020-07-09 15:02] VITALS: BP 122/47
[2020-07-09 18:03] LABS: FOLIC ACID 3.4 ng/mL (8.6-58.9)
--- NOTE | 2020-07-09 18:21 | NUR ---
REC PT FROM 3W, A&0X4, CLOSE SBA (USES WALKER AT HOME SOMETIMES), CHRONIC AFIB, GAVE ROOM/CALL LIGHT INTRO TO PT. ROOM AIR. SEE SEPARATE INTERVENTIONS FOR ASSESSMENTS. ALREADY HAD DINNER ON 3W. HOOKED UP TO REPRESENTATIVE PERSONAL SERVICE. ENCOURAGED HER TO USE CALL LIGHT FOR ANY NEEDS
[2020-07-09 19:30] VITALS: BP 115/64
[2020-07-10 04:00] VITALS: BP 132/80
--- NOTE | 2020-07-10 05:28 | NUR ---
PATIENT STATED THAT SHE HAD DIFFICULTY SLEEPING THROUGHOUT THE NIGHT. UP WITH ASSISTANCE X1. PT REMAINS SOA WITH ACTIVITY BUT TOLERATES WELL AFTER RESTING. TURNS SELF. CONTINUING TO MONITOR HEMOGLOBIN. NO COMPLAINTS OF NASUA OR PAIN THIS SHIFT. WORKING ON PLAN OF CARE AND GOALS. CONTINING TO ASSESS ACCORDING TO PLAN OF CARE
[2020-07-10 05:38] LABS: HEMATOCRIT 25.2 % (37.0-47.0); HEMOGLOBIN 7.5 gm/dL (12.0-15.0); MCH 19.8 pg (26.0-34.0); MCHC 29.6 g/dL (28.0-37.0); MCV 66.9 fL (80.0-100.0); RBC 3.76 mil/uL (4.20-5.00); RDW 24.1 % (10.5-14.5); WBC 10.6 thou/uL (4.0-11.0)
[2020-07-10 07:34] VITALS: BP 127/70
[2020-07-10 09:02] LABS: CALCIUM 8.2 mg/dL (8.5-10.1); CREATININE 1.9 mg/dL (0.6-1.0); MAGNESIUM 1.8 mg/dL (1.8-2.4); POTASSIUM 4.1 mmol/L (3.5-5.1)
[2020-07-10 15:33] VITALS: BP 122/73
--- NOTE | 2020-07-10 18:09 | NUR ---
ASSESSMENT CHARTED. PT ALERT AND ORIENTED. VSS. DENIED HAVING PAIN OR DISCOMFORT. NO CONCERNS AT THIS TIME.
[2020-07-10 19:50] VITALS: BP 116/48
[2020-07-10 20:00] VITALS: BP 128/58
[2020-07-11] VITALS (8 sets, daily range): BP systolic 117–157; BP diastolic 46–96
--- NOTE | 2020-07-11 06:17 | NUR ---
AOX4; STEADY UP TO BATHROOM WITH ASSIST AND GAIT BELT; SOB ON EXERTION WITH RESOLVE FROM PERIODS OF REST; AFIB/BBB ON THE MONITOR; RESTED QUIETLY THROUGHOUT MOST OF THE NOC; PATIENT PROGRESSING WELL TOWARDS POC AND DISCHARGE GOALS; WILL CONTINUE TO MONITOR
--- NOTE | 2020-07-11 06:39 | NUR ---
REMAINS WITH SHORTNESS OF AIR WITH ACTIVITY. LUNG ACUNA WITH NOTED CRACKLES IN BASES. O2 SAT REMAINS AT 94-98%. AM DOSE OF LASIX GIVEN EARLY. NOTIFIED ATHLETICS DIRECTOR OF STATUS. NO NEW ORDERS AT THIS TIME.
[2020-07-11 10:04] LABS: HEMOGLOBIN 7.3 gm/dL (12.0-15.0); MCH 20.2 pg (26.0-34.0); MCHC 30.3 g/dL (28.0-37.0); MCV 66.8 fL (80.0-100.0); RBC 3.6 mil/uL (4.20-5.00); RDW 24.4 % (10.5-14.5); WBC 10.6 thou/uL (4.0-11.0)
[2020-07-11 10:12] LABS: CALCIUM 8.1 mg/dL (8.5-10.1); CREATININE 1.6 mg/dL (0.6-1.0); MAGNESIUM 1.7 mg/dL (1.8-2.4); POTASSIUM 3.3 mmol/L (3.5-5.1)
[2020-07-11 11:06] LABS: HEMOGLOBIN 7.5 g/dL (11.1-15.9)
--- NOTE | 2020-07-11 16:25 | NUR ---
ASSESSMENT CHARTED. PT ALERT AND ORIENTED. VSS. DENIED HAVING PAIN OR DISCOMFORT. NEW ORDERS NOTED. ORDERS GIVEN TO INFUSE 1 UNIT OF BLOOD.
[2020-07-12 04:41] LABS: CALCIUM 8.3 mg/dL (8.5-10.1); CREATININE 1.6 mg/dL (0.6-1.0); HEMOGLOBIN 8.4 gm/dL (12.0-15.0); MCH 21.3 pg (26.0-34.0); MCHC 30.1 g/dL (28.0-37.0); MCV 70.8 fL (80.0-100.0); POTASSIUM 3.9 mmol/L (3.5-5.1); RBC 3.95 mil/uL (4.20-5.00); WBC 11.1 thou/uL (4.0-11.0)
[2020-07-12 05:48] VITALS: BP 128/59
--- NOTE | 2020-07-12 08:57 | EKG ---
[facility] [place] [address] ELECTROCARDIOGRAM REPORT Name: LIAN CRUZ Room #: 205- ADM IN M.R.#: [id number] Admission: 07/06/20 Attend Phys: Etienne Mistry MD Discharge: Date of : 34 Report #: [id number] THIS REPORT FOR: cc: Kevin Valerio MD, Christopher B. MD Lundgren, Craig H. MD [facility] ~ THIS REPORT FOR: //name// [facility] Test Date: 2020-07-12 Test Time: 07:41:16 Pat Name: LIAN CRUZ Department: Room: 205 Gender: F Gta: TERA : 1935 Requested By: Leoncio Bolaños Order Number: [id number] MD: Leoncio Bolaños Measurements Intervals [place] Rate: 74 P: [place]: QRS: 33 QRSD: 152 T: 32 QT: 452 QTc: 502 Interpretive Statements Atrial fibrillation LBBB Compared to ECG 07/06/2020 13:30:51 No significant changes Electronically Signed On 07-12-2020 8:56:44 CDT by Leoncio Bolaños [email or web address] <ELECTRONICALLY SIGNED> By: Leoncio Bolaños MD, FACC 07/12/20 0856 0741 0741 Leoncio Bolaños MD, [facility] /EPI
[2020-07-12 12:14] VITALS: BP 130/61
[2020-07-12 14:05] VITALS: BP 112/64
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
[2020-07-12 17:01] VITALS: BP 101/48
--- NOTE | 2020-07-12 18:10 | NUR ---
ASSESSMENT CHARTED, NO PAIN OR DISCOMFORT NOTED OR REPORTED. VSS AND AFEBRILE. AND WILL CONTNIUE WITH POC.
[2020-07-12 20:39] VITALS: BP 1029/60
[2020-07-13 04:53] VITALS: BP 131/58
[2020-07-13 05:06] LABS: HEMATOCRIT 27.6 % (37.0-47.0); HEMOGLOBIN 8.5 gm/dL (12.0-15.0); MCH 21.7 pg (26.0-34.0); MCHC 30.6 g/dL (28.0-37.0); RBC 3.89 mil/uL (4.20-5.00); RDW 27.3 % (10.5-14.5); WBC 9.8 thou/uL (4.0-11.0)
[2020-07-13 05:24] LABS: CALCIUM 8.6 mg/dL (8.5-10.1); CREATININE 1.7 mg/dL (0.6-1.0); POTASSIUM 3.7 mmol/L (3.5-5.1)
[2020-07-13 08:30] VITALS: BP 113/62
[2020-07-13] MEDS ORDERED: FERREX 150 PLU1 EAC1 PO (08:48)
[2020-07-13] MEDS ORDERED: CARDIZEM CD120 MG PO (08:48)
--- NOTE | 2020-07-13 09:10 | PATH ---
[facility] [address] [place] [address] PATHOLOGY RPT PROCEDURE Name: LIAN KO Room #: 205-P ADM IN M.R.#: [id number] Admission: 07/06/20 Date of : 33 Discharge: Report #: [id number] Path Case #: [id number] [facility] Accession Number: [id number] . 01 Material submitted: . PART A: duodenum - BX DUODENUM PART B: stomach - BX GASTRIC ANTRUM . 01 Clinician provided ICD-10: D64.9 I50.23 . 01 Clinical history: . ANEMIA, GI BLEED A. R/O CELIAC B. R/O H PYLORI . 02 Diagnosis: A. Small bowel "duodenum", endoscopic biopsy: - Duodenal mucosa without significant pathologic alteration. . B. Stomach "antrum", endoscopic biopsy: - Gastric antral mucosa without significant pathologic alteration. - Negative for intestinal metaplasia, dysplasia, and malignancy. - Negative for Helicobacter pylori. (MLK:pit; 07/12/2020) QTP 07/13/2020 0843 Local . 02 Electronically signed: . Lizzy Chowdary MD, Pathologist NPI- [id number] . 01 Gross description: . A. The specimen is received in formalin, labeled "Lain Ko, biopsy duodenum, R/O celiac". Received are two segments of pale robledo soft tissue ranging in size from 0.2 to 0.4 cm in maximum dimensions. The specimen is submitted entirely in cassette A1. . B. The specimen is received in formalin, labeled "Lian Ko, biopsy gastric antrum, R/O H. pylori". Received is a segment of pale robledo soft tissue measuring 0.4 cm in maximum dimensions. The specimen is submitted entirely in cassette B1. (CAA; 07/09/2020) QAC/QA 07/09/2020 1028 Local . 02 Microscopic: . Immunohistochemical stain results (properly controlled) [facility] [address] [place] [address] PATHOLOGY RPT PROCEDURE Name: LIAN KO Room #: 205-P ADM IN M.R.#: [id number] Admission: 07/06/20 Date of : 33 Discharge: Report #: [id number] Path Case #: [id number] . - Helicobacter pylori - negative for organisms. (MLK:pit; 07/12/2020) . 02 Pathologist provided ICD-10: D64.9, I50.23 . 02 CPT . 866216, 244399, L62763 Specimen Comment: A courtesy copy of this report has been sent to [phone], [phone] Specimen Comment: [phone], , Specimen Comment: Report sent to ,DR SESAY,DR GARCIA / DR CURRY Performed at: [address] [facility], [place], [place] [id number] MD Rangel Plaza MD Phone: [phone] Performed at: [address] [facility] [id number] MD Karin Dey MD Phone: [phone]
[2020-07-13] MEDS ORDERED: IRON325 PO (09:38)
[2020-07-13] MEDS ORDERED: FOLIC ACID1 MG PO (09:39)
[2020-07-13] MEDS ORDERED: PROTONIX40 M2 PO (09:42)
[2020-07-13 12:38] VITALS: BP 113/62
== END 2020-07-13 14:31 | disposition home or self-care (01) | DRG 377 ==
LOC: ER 12:21 → EROBS 14:31 → 3W 14:31 → 2N 07-09 18:10
PROVIDERS: Emergency Medicine; Internal Medicine; Nurse Practitioner; Nurse Practitioner Family; ADMIT Internal Medicine; ATTEND Internal Medicine
PROC: 30233N1 Transfusion of Nonautologous Red Blood Cells into Peripheral Vein, Percutaneous Approach (ICD-10-PCS; principal; 2020-07-06)
PROC: 0DB68ZX Excision of Stomach, Via Natural or Artificial Opening Endoscopic, Diagnostic (ICD-10-PCS; 2020-07-08)
PROC: 0DJD8ZZ Inspection of Lower Intestinal Tract, Via Natural or Artificial Opening Endoscopic (ICD-10-PCS; 2020-07-08)
PROC: 0DB98ZX Excision of Duodenum, Via Natural or Artificial Opening Endoscopic, Diagnostic (ICD-10-PCS; 2020-07-08)
DX: K57.31 Diverticulosis of large intestine without perforation or abscess with bleeding (principal); I50.43 Acute on chronic combined systolic (congestive) and diastolic (congestive) heart failure; I13.0 Hypertensive heart and chronic kidney disease with heart failure and stage 1 through stage 4 chronic kidney disease, or unspecified chronic kidney disease; N17.9 Acute kidney failure, unspecified; D62 Acute posthemorrhagic anemia; N18.4 Chronic kidney disease, stage 4 (severe); I48.21 Permanent atrial fibrillation; J91.8 Pleural effusion in other conditions classified elsewhere; Z20.828 Contact with and (suspected) exposure to other viral communicable diseases; F41.9 Anxiety disorder, unspecified; E66.01 Morbid (severe) obesity due to excess calories; K44.9 Diaphragmatic hernia without obstruction or gangrene; K64.8 Other hemorrhoids; E87.6 Hypokalemia; I35.0 Nonrheumatic aortic (valve) stenosis; R63.4 Abnormal weight loss; G47.00 Insomnia, unspecified; D63.1 Anemia in chronic kidney disease; Z79.01 Long term (current) use of anticoagulants; Z68.38 Body mass index [BMI] 38.0-38.9, adult; Z88.0 Allergy status to penicillin; Z88.2 Allergy status to sulfonamides; Z88.8 Allergy status to other drugs, medicaments and biological substances; Z82.49 Family history of ischemic heart disease and other diseases of the circulatory system; Z87.442 Personal history of urinary calculi; Z23 Encounter for immunization; Z79.899 Other long term (current) drug therapy
CPT/HCPCS: 10081; 10879; 62110; 62900; 70005

== ENCOUNTER 2020-07-30 10:13 | Inpatient (IN) | payer OTHER ==
[~2020-07-30] VITALS: Ht 175.3 cm; Wt 111.8 kg
--- NOTE | ~2020-07-30 | EKG ---
[facility] [place] [address] ELECTROCARDIOGRAM REPORT Name: LIAN CRUZ Room #: 170 ADM IN M.R.#: [id number] Admission: 07/30/20 Attend Phys: Etienne Mistry MD Discharge: Date of : 34 Report #: [id number] THIS REPORT FOR: cc: Kevin Valerio MD, Christopher B. MD Epiphany, Epiphany MD ~ THIS REPORT FOR: //name// [facility] Test Date: 2020-07-31 Test Time: 12:14:29 Pat Name: LIAN CRUZ Department: Room: 170 1 Gender: F Deburr Technician: Ruy MEJIA : 1935 Requested By: Leoncio Bolaños Order Number: [id number] MD: Measurements Intervals [place] Rate: 99 P: [place]: QRS: -2 QRSD: 148 T: 176 QT: 360 QTc: 462 Interpretive Statements Atrial fibrillation Left bundle branch block Compared to ECG 07/30/2020 10:19:30 No significant changes [email or web address] By: 1214 1214 Epiphany EpiphMD vincent /EPI
[~2020-07-30 10:13] MED LIST changes: +CARDIZEM CD120 MG PO; +FERREX 150 PLU1 EAC1 PO; +FOLIC ACID1 MG PO; +IRON325 PO; +PROTONIX40 M2 PO
[2020-07-30 10:14] VITALS: BP 137/98
[2020-07-30 11:05] LABS: HEMATOCRIT 37.3 % (37.0-47.0); HEMOGLOBIN 11.1 gm/dL (12.0-15.0); MCHC 29.8 g/dL (28.0-37.0); MCV 77.1 fL (80.0-100.0); PLATELET COUNT 313 thou/uL (150-400); RBC 4.84 mil/uL (4.20-5.00); RDW 34.7 % (10.5-14.5); WBC 12.6 thou/uL (4.0-11.0)
[2020-07-30 11:23] LABS: ANION GAP 11 mmol/L (7-16); BUN 38 mg/dL (7-18); CALCIUM 8.6 mg/dL (8.5-10.1); CHLORIDE 104 mmol/L (98-107); CO2 25 mmol/L (21-32); GLUCOSE 134 mg/dL (74-106); POTASSIUM 4.3 mmol/L (3.5-5.1); SODIUM 140 mmol/L (136-145)
[2020-07-30 11:34] LABS: ALBUMIN 2.9 g/dL (3.4-5.0); SGOT 11 U/L (15-37); SGPT 11 U/L (30-65); TOTAL BILIRUBIN 1.2 mg/dL (0.2-1.0); TROPONIN-I <0.06 ng/mL (<0.06)
[2020-07-30 12:24] LABS: ABSOLUTE NEUTROPHILS 10.6 thou/uL (1.4-8.2); ANISOCYTOSIS 2+; OVALOCYTES 1+; PLATELET ESTIMATE NORMAL
--- NOTE | 2020-07-30 14:39 | EKG ---
[facility] [place] [address] ELECTROCARDIOGRAM REPORT Name: LIAN CRUZ Room #: REG [facility]#: [id number] Admission: 07/30/20 Attend Phys: Discharge: Date of : 34 Report #: [id number] THIS REPORT FOR: cc: Kevin Valerio MD, Christopher B. MD Santiago, Patrick MD [facility] ~ THIS REPORT FOR: //name// 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: : 1935 Requested By: Gene Shankar Order Number: [id number] MD: Noel Hernandez Measurements Intervals [place] Rate: 130 P: NV: QRS: 24 QRSD: 129 T: QT: 328 QTc: 483 Interpretive Statements Atrial fibrillation, transient aberrancy Left bundle branch block Compared to ECG 07/12/2020 07:41:16 No significant changes Electronically Signed On 07-30-2020 14:39:16 CLINICAL PSYCHOLOGIST LICENSED by Noel Hernandez [email or web address] <ELECTRONICALLY SIGNED> By: Noel Hernandez MD, FACC 07/30/20 1439 1019 1019 Noel Hernandez MD, FAC /EPI
[2020-07-31 05:28] LABS: ABSOLUTE NEUTROPHILS 12.4 thou/uL (1.4-8.2); BASOPHILS 0.2 % (0.0-2.0); HEMATOCRIT 37.7 % (37.0-47.0); HEMOGLOBIN 11.2 gm/dL (12.0-15.0); LYMPHOCYTES 3.3 % (24.0-44.0); MCH 23.4 pg (26.0-34.0); MCHC 29.8 g/dL (28.0-37.0); MCV 78.5 fL (80.0-100.0); MONOCYTES 0.5 % (1.0-8.0); PLATELET COUNT 273 thou/uL (150-400); RDW 34.1 % (10.5-14.5)
[2020-07-31 05:48] LABS: CALCIUM 8.6 mg/dL (8.5-10.1); MAGNESIUM 2.3 mg/dL (1.8-2.4); POTASSIUM 4.9 mmol/L (3.5-5.1)
[2020-07-31 13:15] VITALS: BP 98/61
--- NOTE | 2020-07-31 13:20 | NUR ---
ATTEMPTED TO CALL REPORT. WAS TOLD VINOD WAS NOT AVAILABLE AND WOULD CB
[2020-07-31 13:47] VITALS: BP 108/51
[2020-07-31 14:50] VITALS: BP 111/66
[2020-07-31 19:40] VITALS: BP 118/66
[2020-08-01 03:30] VITALS: BP 112/68
--- NOTE | 2020-08-01 03:35 | NUR ---
ASSESSMENTS CHARTED, MEDS CHARTED GIVEN. PATIENT RESTING IN BED DURING SHIFT. ON CARDIZEM DRIP DURING SHIFT ALONG WITH ANTIBIOTIC THERAPY. USING EXTERNAL FEMALE CATHETER WITH SUCCESS. REMAINING IN AFIB WITH BBB ON TELEMETRY. LASIX THERAPY AND ELEVATE BILATERAL LOWER EXTREMITIES DURING SHIFT. FALL PRECAUTIONS IN PLACE. DENIED PAIN.
[2020-08-01 08:30] VITALS: BP 110/60
[2020-08-01 11:20] VITALS: BP 108/60
[2020-08-01 15:30] VITALS: BP 114/57
[2020-08-02 03:51] LABS: CALCIUM 8.3 mg/dL (8.5-10.1); CREATININE 2.2 mg/dL (0.6-1.0); POTASSIUM 4.1 mmol/L (3.5-5.1)
[2020-08-02 04:45] VITALS: BP 107/91
--- NOTE | 2020-08-02 05:35 | NUR ---
PT LYING IN BED. DENIES PAIN. RESTING COMFORTABLY. NO NEEDS VOICED. CALL LIGHT WITHIN REACH. FREQUENT OBSERVATION.
[2020-08-02 08:59] VITALS: BP 119/66
[2020-08-02 11:33] VITALS: BP 145/86
--- NOTE | 2020-08-02 11:57 | 2DMMODE ---
[facility] [place] [address] 2 D/M-MODE ECHOCARDIOGRAM Name: LIAN CRUZ Room #: 208-P ADM IN M.R.#: [id number] Admission: 07/30/20 Attend Phys: Etienne Mistry MD Discharge: Date of : 34 Report #: [id number] THIS REPORT FOR: cc: Kevin Valerio MD, Christopher B. MD Santiago, Patrick MD [facility] ~ APPROVED REPORT Study performed: 08/02/2020 10:41:32 EXAM: Comprehensive 2D, Doppler, and color-flow Echocardiogram Patient Location: Bedside Room #: 208 Status: routine BSA: 2.28 HR: 95 bpm BP: 119/66 mmHg Rhythm: Atrial Fibrillation Other Information Study Quality: Adequate Indications Afib, CHF. Hx: Diastolic heart failure, PAF, HTN 2D Dimensions RVDd: 48.15 mm IVSd: 12.39 (7-11mm) LVOT Diam: 20.68 (18-24mm) LVDd: 45.76 mm PWd: 11.34 (7-11mm) Ascending Ao: 32.74 (22-36mm) LVDs: 38.87 (25-40mm) Aortic Root: 32.34 mm Volumes Left Atrial Volume (Systole) Single Plane 4CH: 106.72 mL Single Plane 2CH: 91.82 mL LA ESV Index: 47.00 mL/m2 Aortic Valve AoV Peak Charles.: 1.81 m/s AO Peak Gr.: 13.39 mmHg LVOT Max P.63 mmHg AO Mean Gr.: 8.50 mmHg AO V2 Mean: 1.39 m/s LVOT Max V: 0.81 m/s [facility] [address] [address] 2 D/M-MODE ECHOCARDIOGRAM Name: LIAN CRUZ Room #: 208-[facility]#: [id number] Admission: 07/30/20 Attend Phys: Etienne Mistry MD Discharge: Date of : 34 Report #: [id number] AO V2 VTI: 33.59 cm SEBLE Vmax: 1.50 cm2 Mitral Valve MV Decel. Time: 164.13 ms MV E Max Charles.: 1.36 m/s Pulmonary Valve PV Peak Charles.: 1.42 m/s PV Peak Gr.: 8.07 mmHg Tricuspid Valve TR Peak Charles.: 3.07 m/s RAP Estimate: 15.00 mmHg TR Peak Gr.: 38.05 mmHg PA Pressure: 53.00 mmHg Left Ventricle The left ventricle is normal size. Mild concentric left ventricular hypertrophy. Left ventricular systolic function is moderately decreased. LVEF is 40%. This study is not technically sufficient to allow evaluation of the LV diastolic function due to atrial fibrillation. Right Ventricle Right ventricle is dilated. The right ventricular systolic function is normal. Atria Severe biatrial enlargement. Aortic Valve Aortic valve leaflets are moderately thickened and calcified. No aortic regurgitation is present. There is mild valvular aortic stenosis. Calculated aortic valve area is 1.5 cm2 with maximum pressure gradient of 13 mmHg and mean pressure gradient of 9 mmHg. Mitral Valve Mitral valve leaflets are mildly thickened. Moderate mitral annular calcification. Moderate mitral regurgitation. No evidence of mitral valve stenosis. Tricuspid Valve The tricuspid valve is normal in structure. Severe tricuspid regurgitation. Estimated PAP is 50-55mmHg. Pulmonic Valve [address] [address] 2 D/M-MODE ECHOCARDIOGRAM Name: LINA CRUZ Room #: 208-P ADM IN M.R.#: [id number] Admission: 07/30/20 Attend Phys: Etienne Mistry MD Discharge: Date of : 33 Report #: [id number] The pulmonary valve is normal in structure. Trace pulmonic regurgitation. Great Vessels The aortic root is normal in size. The ascending aorta is normal in size. IVC is dilated and collapses <50% with inspiration. Pericardium There is no pericardial effusion. <Conclusion> Normal left ventricular size Mild concentric hypertrophy EF 40% with severe anteroapical hypokinesis Mildly dilated RV Severe biatrial enlargement Moderatecentral mitral valve insufficiency Severe tricuspid valve insufficiency PA systolic pressure estimated 50 mmHg Mild aortic valve stenosis the mean gradient estimated at 9 mmHg Mild aortic valve calcification No pericardial effusion <ELECTRONICALLY SIGNED> By: Noel Hernandez MD, FACC 08/02/20 1156 1156 1156 Noel Hernandez MD, FAC /INF
[2020-08-02 16:31] VITALS: BP 121/73
--- NOTE | 2020-08-02 18:14 | NUR ---
Met with patient who reports recent hospital stay at [facility]. Patient discharged home and reports weakness at home. She reports she has not been able to get out of bed. She is concerned with her fluid overload. She reports cannot move her legs. She lives with spouse, all needs on one level. Patient reports her spouse with hx of falls. She reports he is safe at home while she is here in hospital. She has walker at home as needed. Prev stay patient adament no rehab and wanted to return directly home with no care due to COVID. Patient agreeable to rehab this stay. "well i have too this time no choice." Patient reports neighbors assisting her spouse at home. 5N norah in process.
--- NOTE | 2020-08-02 18:56 | NUR ---
RECEIVED PT'S CARE AROUND 0710; PT. ON BED; ALERT; DURING AM ASSESSMENT PT. AOX4; ANXIOUS; AM MEDICATIONS GIVEN; REFUSED IRON; REQUESTED BEDPAN; EDUCATED ABOUT BOWEL MANAGEMENT DUE TO BEAR DOWM WHILE HAVING BM; ST. UNDERSTANDING; PHYSICIAN NOTIFIED; MEDICATIONS ON EMAR; AFIB ON THE MONITOR; EDUCATED ABOUT TRYING TO TAKE DEEP BREATHS WHILE FLAT AND TRANSFERING TO CART; REFUSED TURNING; REFUSED CHANGING DURING THE AFTERNOON; AGREED LATE ON THE EVENING; ABLE TO TAKE MEDICATIONS WITH APPLE SAUCE; ASSESSMENT CHARGED; FOLLOWING POC; PASSED ON REPORT;
[2020-08-02 19:38] VITALS: BP 125/63
[2020-08-03 00:10] VITALS: BP 131/51
--- NOTE | 2020-08-03 02:45 | NUR ---
ASSUMED CARE OF PATIENT AT 1900. PATIENT REQUESTING WATER, STATES THAT SHE DOESN'T LIKE THICKENED LIQUIDS. DISCUSSED WITH PATIENT WHY SHE WAS PLACED ON THICKEN LIQUIDS. DID ALLOW PATIENT TO SUCK ON ICE CHIPS. NO COUGHING NOTED. PITTING EDEMA NOTED IN BLE. PATIENT STATES THAT HER LEGS FEEL LIKE THEY ARE BURNING. OFFERED TYLENOL. PATIENT DECLINED.
[2020-08-03 04:00] VITALS: BP 107/63
[2020-08-03 05:23] LABS: CALCIUM 8.3 mg/dL (8.5-10.1); CREATININE 2.1 mg/dL (0.6-1.0); POTASSIUM 3.7 mmol/L (3.5-5.1)
[2020-08-03 08:20] VITALS: BP 116/63
[2020-08-03 11:35] VITALS: BP 123/71
[2020-08-03 16:15] VITALS: BP 127/69; BP 147/88
--- NOTE | 2020-08-03 16:31 | NUR ---
ASSUMED CARE OF PT AT SHIFT CHANGE. ASSESSMENTS CHARTED. MEDS GIVEN PER NOV. PT A&OX4, NO C/O PAIN OR SOA AT THIS TIME. PT ON RA, PREFERS TO SIT STRAIGHT UP TO HELP WITH SOA. PT REFUSED PT TODAY. PLAN TO DC TO [facility] OR SNF ONCE CARD CLEARS. WILL CONTINUE TO MONITOR AND FOLLOW POC.
[2020-08-03 19:55] VITALS: BP 111/54
--- NOTE | 2020-08-04 02:31 | NUR ---
ASSUMED CARE OF PATIENT AT 1900. PATIENT REMAINS IN BED AND DOES NOT TRANSFER OR AMBULATE D/T WEAKNESS. 1+ RLE AND 3+ LLE EDEMA OBSERVED. PATIENT DENIES SOA/PAIN AT ASSESSMENTS.
[2020-08-04 04:04] VITALS: BP 138/45
[2020-08-04 06:24] LABS: CALCIUM 8.6 mg/dL (8.5-10.1); CREATININE 2.2 mg/dL (0.6-1.0); POTASSIUM 3.2 mmol/L (3.5-5.1)
[2020-08-04 08:32] LABS: HEMATOCRIT 40.9 % (37.0-47.0); HEMOGLOBIN 12.3 gm/dL (12.0-15.0); MCV 76.7 fL (80.0-100.0); PLATELET COUNT 273 thou/uL (150-400); RBC 5.33 mil/uL (4.20-5.00); RDW 33.5 % (10.5-14.5); WBC 14.1 thou/uL (4.0-11.0)
[2020-08-04 09:34] LABS: ABSOLUTE NEUTROPHILS 13.3 thou/uL (1.4-8.2); ANISOCYTOSIS 2+; NUCLEATED RBCS 1 /100WBC; PLATELET ESTIMATE NORMAL
[2020-08-04 10:38] VITALS: BP 110/58
[2020-08-04 11:45] VITALS: BP 127/69
--- NOTE | 2020-08-04 13:12 | NUR ---
BPCI Note Given: Y Facility List Provided:Y Facility Chosen: [facility] inpatient rehab eval pending. Pt from home
[2020-08-04 15:21] VITALS: BP 115/66
--- NOTE | 2020-08-04 17:06 | NUR ---
ASSUMED CARE OF PT AT SHIFT CHANGE. ASSESSMENS CHARTED. MEDS GIVEN PER MAR. C/O PAIN IN LEGS, BUT DECLINED PAIN MEDS. CONTINUES TO REFUSE PT/OT, SAYS "WANTS TO GET MORE FLUID OFF BEFORE STARTING THERAPY". CONTINUES TO DIURESE. WILL CONTINUE TO MONITOR AND FOLLOW POC.
[2020-08-04 19:45] VITALS: BP 115/60
[2020-08-05 01:06] LABS: GLYCOHEMOGLOBIN (HGB A1C) 5.6 % (4.8-5.6)
[2020-08-05 04:52] VITALS: BP 107/57
[2020-08-05 06:09] LABS: CALCIUM 7.7 mg/dL (8.5-10.1); CREATININE 2.5 mg/dL (0.6-1.0); POTASSIUM 3.5 mmol/L (3.5-5.1)
--- NOTE | 2020-08-05 08:15 | NUR ---
SLEPT PART OF SHIFT. ENCOURAGED PATIENT TO START TO WORK WITH PT AND OT. WORKING ON GOALS AND PLAN OF CARE FOR NOC. ASSIST TO REPOSITION PRN FOR COMFORT AND SKIN CARE. PROGRESSING SLOWLY TOWARDS GOALS FOR TX TO 5N. CONTINUE TO ALCIDES NASSAR.
[2020-08-05 08:30] VITALS: BP 117/97
--- NOTE | 2020-08-05 12:18 | NUR ---
ASSESSMENT CHARTED - MEDS PER MAR - METALAZONE GIVEN ORDERED. NO CO'S OF PAIN OR NAUSEA. PT UP TO THE BSC AND CHAIR THIS AM - PT REQUIRING MUCH ENCOURAGMENT TO GET OUT OF BED - STATED SHE WOULD DO HER BEST TO BE UP MUCH POSSIBLE. HOPE TO GO TO 5 N REFUSING TO GO ANYWHERE ELSE. MARY DIET AND FLUIDS. ACCUCHECKS COVERED CHARTED - NO CO'S AT THE PRESENT TIME.
[2020-08-05 12:31] VITALS: BP 107/48
--- NOTE | 2020-08-05 14:17 | NUR ---
Case discussed with the care team. All staff encouraging the pt to work with therapy and increase activity today for possible 5[facility] acute rehab acceptance. Pt given [facility] snf list per the liason. She declined snf referrals but reports that she is willing to go to 5N if approved, other wants to go home. Pt had declined HH in the past. 5[facility] to reveiw therapy notes from today. Will follow.
--- NOTE | 2020-08-05 15:49 | NUR ---
Visited with pt to go over skilled facilities list again and see if she would be willing to go to SNF for skilled services. Pt refused SNF- states "I want to go to therapy in the hospital so I can see my . I do not want to go to a [place] [facility] [place]." Explained to pt that she would only be recieving skilled services while at SNF and she would not neccessarily stay LTC. Pt thanked this senior writer for the information however pt chooses to go to N for rehab if accepted.
--- NOTE | 2020-08-05 20:10 | NUR ---
assessment as charted - meds as per mar - pt up to chair for the am - back to bed after lunch. remains incontinent with female cath in place. duarte diet and fluids. seen by therapy today and participated with each. no co's at the present time.
[2020-08-05 20:21] VITALS: BP 119/60
[2020-08-06 03:02] VITALS: BP 109/69
--- NOTE | 2020-08-06 04:53 | NUR ---
SLEPT MOST OF SHIFT. DENIES COMPLAINTS OF PAIN. REMAINS SHORT OF AIR WITH ACTIVITY AND FATIGUE. WORKING ON GOALS AND PLAN OF CARE FOR NOC. STATES WORKED WITH PT YESTERDAY AND THEY WORE HER OUT. PROGRESSING TOWARDS TX TO REHAB. EDEMA LE'S IMPROVING. CONTINUE TO ASSES CLOSELY.
[2020-08-06 06:41] LABS: CALCIUM 8.1 mg/dL (8.5-10.1); CREATININE 2.4 mg/dL (0.6-1.0); POTASSIUM 3.3 mmol/L (3.5-5.1)
[2020-08-06 07:46] VITALS: BP 128/70
[2020-08-06 11:36] VITALS: BP 101/62
[2020-08-06] MEDS ORDERED: PREDNISONE 20 M20 M1 PO (13:10)
[2020-08-06] MEDS ORDERED: K-DUR 20 MEQ T20 MEQ PO (13:10)
[2020-08-06] MEDS ORDERED: CEFUROXIME500 MG PO (13:10)
[2020-08-06] MEDS ORDERED: MUCINEX600 MG PO (13:10)
[2020-08-06] MEDS ORDERED: DEMADEX20 MG PO (13:10)
[2020-08-06] MEDS ORDERED: COLACE 100 MG100 MG PO (13:10)
--- NOTE | 2020-08-06 17:13 | NUR ---
assessment as charted. meds as per nov - no co's of pain or nausea. duarte diet and fluids. pt up to the commode and in the chair - seen by therapy this am. pt legs wrapped as ordered. pt to rehab this afternoon. report called to receiving nurse. pt transfered with belongings to rehab via chair. no co's at time of transfer.
== END 2020-08-06 15:30 | DRG 871 ==
LOC: ER 10:13 → 2N 14:40 → EROBS 14:40 → 2N 07-31 14:58
PROVIDERS: Emergency Medicine; Internal Medicine; Internal Medicine Cardiovascular Disease; Nurse Practitioner; ADMIT Internal Medicine; ATTEND Internal Medicine
DX: A41.9 Sepsis, unspecified organism (principal); J18.9 Pneumonia, unspecified organism; I50.43 Acute on chronic combined systolic (congestive) and diastolic (congestive) heart failure; J96.01 Acute respiratory failure with hypoxia; I48.21 Permanent atrial fibrillation; N17.9 Acute kidney failure, unspecified; E44.0 Moderate protein-calorie malnutrition; I13.0 Hypertensive heart and chronic kidney disease with heart failure and stage 1 through stage 4 chronic kidney disease, or unspecified chronic kidney disease; I48.0 Paroxysmal atrial fibrillation; E78.5 Hyperlipidemia, unspecified; N18.9 Chronic kidney disease, unspecified; F41.9 Anxiety disorder, unspecified; Z60.2 Problems related to living alone; I35.0 Nonrheumatic aortic (valve) stenosis; E66.01 Morbid (severe) obesity due to excess calories; D50.9 Iron deficiency anemia, unspecified; G47.00 Insomnia, unspecified; Z20.828 Contact with and (suspected) exposure to other viral communicable diseases; Z68.36 Body mass index [BMI] 36.0-36.9, adult; Z88.0 Allergy status to penicillin; Z88.2 Allergy status to sulfonamides; Z88.8 Allergy status to other drugs, medicaments and biological substances; Z87.891 Personal history of nicotine dependence; Z87.442 Personal history of urinary calculi; Z82.49 Family history of ischemic heart disease and other diseases of the circulatory system; Z28.21 Immunization not carried out because of patient refusal
CPT/HCPCS: 10081

== ENCOUNTER 2020-08-06 13:29 | Inpatient (IN) | payer OTHER ==
[~2020-08-06] VITALS: Ht 175.3 cm; Wt 114.8 kg
--- NOTE | ~2020-08-06 | PLAN ---
[facility] [place] [address] REHAB UNIT PLAN OF CARE Name: LIAN CRUZ Room #: 511-P ADM IN M.R.#: [id number] Admission: 08/06/20 Attend Phys: Allan Yanes MD Discharge: Date of : 33 Report #: [id number] THIS REPORT FOR: //name// CC: Kevin Yanes DATE OF SERVICE: 08/07/2020 PROGRESS NOTE AND OVERALL PLAN OF CARE SUBJECTIVE: The patient is seen back today. She was seen earlier. Last recorded temperature 36.2, pulse 79, respirations 20, and blood pressure 119/75. She is pleasant, was in no distress. She has generalized weakness. She is obese, pleasant affect. She has been working in therapies with transfers, max assist. Gait, independent 8 steps in the parallel bars. In occupational therapy, they have been evaluating her. She has been dependent for toileting, has been taking 2-3 steps with transfers, stand pivot. Bed mobility has been standby assistance. Speech therapy is also following. She did have a swallow study and is on a regular thin and is to follow swallowing strategies. ASSESSMENT: 1. Medical complexity with generalized debilitation. 2. Acute on chronic diastolic heart failure. 3. Sepsis. 4. Acute hypoxic respiratory failure, prior to her rehabilitation admission. 5. Permanent atrial fibrillation. 6. Aortic stenosis. 7. Anemia. 8. Hypertension. 9. Chronic kidney disease. 10. Recent gastrointestinal bleed. PLAN: The overall plan of care is based on the preadmission screen and information garnered from therapy assessments. 1. Estimated length of stay is going to be at least 10-14 days, most likely. 2. Medical prognosis is reasonably good. 3. Anticipated interventions includes the interdisciplinary acute inpatient rehabilitation program. 4. Anticipated functional outcomes would be for the patient to become modified independent with transfers, mobility, ADLs, so she can hopefully return back to the home setting. 5. Discharge destination would be back home where she lives with her . 6. Expected therapy by discipline includes PT, OT and speech 1 hour per day each five days a week throughout the duration of the acute inpatient rehabilitation stay. She may be able to decrease speech therapy and increase PT and OT depending upon how she does. [address] [address] REHAB UNIT PLAN OF CARE Name: LIAN CRUZ Room #: 511-P [facility] IN ..#: [id number] Admission: 08/06/20 Attend Phys: Allan Yanes MD Discharge: Date of : 34 Report #: [id number] The patient's prognosis for significant practical improvement within a reasonable period of time appears good. Given the patient's complex medical condition and risk of further medical complications, rehabilitation services could not be safely provided at a lower level of care such as a longterm facility. By: [id number] Allan Yanes MD /nt
[~2020-08-06 13:29] MED LIST changes: +CEFUROXIME500 MG PO; +COLACE 100 MG100 MG PO; +DEMADEX20 MG PO; +MUCINEX600 MG PO; +PREDNISONE 20 M20 M1 PO
--- NOTE | 2020-08-06 16:27 | NUR ---
chart review. cm visit with odalis via phone call. intro to dcp and team meeting. odalis reported " live at home with spouse. odalis independent when feeling ok, had some falls. have 1 level home. walker. pcp dr kimble"/odalis. will cont following as needed for dc needs.
--- NOTE | 2020-08-06 18:16 | NUR ---
PT ARRIVED AT 1530 FROM CCU, ALERT AND ORIENTED*4. DENIES PAIN AT THIS TIME. VITALS ARE STABLE. LS CLEAR, SATS STABLE. HS STABLE. BS ACTIVE*4, ABDOMEN SOFT AND ROUND, PT HAD A LARGE SOFT BM THIS SHIFT. LEFT UPPER ARM IV INTACT AND PATENT. PT HAS BLE EDEMA, ACEWRAPS REDONE UPON ARRIV[place]AND EXTREMITIES ELEVATED. SACRAL WOUND CLEANED AND BARRIER CREAM APPLIED (UNABLE TO TAKE PICS AT THIS TIME). PT UP WITH 2 MOD-MAX ASSIST, GB AND WALKER PIVOT TRANSFERS TO BEDSIDE COMMODE AND TOLERATED WELL. Q1H VISUAL CHECKS. CALL LIGHT WITHIN REACH. FALL PRECAUTIONS IN PLACE
[2020-08-06 19:47] VITALS: BP 102/64
--- NOTE | 2020-08-06 21:27 | NUR ---
REPORT RECEIVED AND ASSUMED CARE AROUND 1914. PT UP IN RECLINER AT THAT TIME, BUT AGREED TO GET INTO THE BED WHEN TIME FOR SLEEPING. 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 THIS AREA IS TO BE PHOTOGRAPHED ONCE PT IS IN BED, AND EDUCAITON PROVIDED REGARDING TURNING AND REPOSITIONING EVERY 2 HOURS. PT VOICED CONCERN THAT SHE IS UNABLE TO SLEEP ON HER SIDES FOR VERY LONG, AND REASSURED HER THAT WE WOULD PROVIDE SHIFTS OF HER HIPS AND WOULD POSITION HER SO SHE COULD BREATHE. WRAPS WERE REMOVED FROM BLE, SKIN WAS SHOWING SIGNS OF PRESSURE. PT IS TO WEAR WRAPS ON 8 HOURS AND OFF 16 HOURS. WRAPS WERE REMOVED AT 2100. REPORT GIVEN TO Dale RHODES AND CARE RELINQUISHED.
--- NOTE | 2020-08-06 21:40 | NUR ---
DISCHARGE PLANNING NOTE: PER PATIENT REPORT THIS EVENING, SHE WOULD LIKE TO DISCHARGE TO AN ASSISTED LIVING FACILITY, BECAUSE SHE STATES, "MY AND i ARE 85, AND HE IS NOT VERY STRONG ANYMORE. WE NEED TO MOVE TO AN ASSISTED LIVING FACILITY. I HOPE TO GO THERE AFTER REHAB. "
--- NOTE | 2020-08-07 04:07 | NUR ---
VOIDING FREQUENTLY, EATING ICE, LEGS ELEVATED ON PILLOWS ALL SHIFT UNTIL NOW WHEN SHE IS ASKING TO NOT HAVE PILLOW UNDER RIGHT LEG. TURNED TO RIGHT WITH SELFSAME PILLOW PLACED TO HER BACK
[2020-08-07 05:12] LABS: HEMATOCRIT 38.3 % (37.0-47.0); HEMOGLOBIN 11.6 gm/dL (12.0-15.0); MCH 22.8 pg (26.0-34.0); MCHC 30.2 g/dL (28.0-37.0); MCV 75.5 fL (80.0-100.0); RBC 5.08 mil/uL (4.20-5.00); RDW 33.4 % (10.5-14.5); WBC 17.8 thou/uL (4.0-11.0)
[2020-08-07 05:25] LABS: CALCIUM 7.9 mg/dL (8.5-10.1); CREATININE 2.7 mg/dL (0.6-1.0)
[2020-08-07 08:00] VITALS: BP 119/75
--- NOTE | 2020-08-07 10:07 | NUR ---
ASSUMED CARE AT 0700. PATIENT IS ALERT AND ORIENTED X4, BUT FORGETFUL. PATIENT RAMIREZ'S, PLANT GUARD ARE EQUAL. LUNGS ARE DEMINISHED. ABD IS SOFT WITH BSX4. PATIENT USES BEDPAN TO VOID BRANDYN COLORED URINE. DR. BRAGA HERE TO SEE PATIENT. ULTRASOUND ORDERED. FALL AND SAFETY PROTOCOLS IN PLACE. DENIES PAIN AT THIS TIME. S.L. IN HER LEFT AC IS PATENT AND INTACT. MOISTURE BARRIER TO BOTTOM. WILL CONTINUE TO MONITER.
[2020-08-07 19:37] VITALS: BP 112/72
[2020-08-07 20:43] VITALS: BP 121/76
--- NOTE | 2020-08-08 01:28 | NUR ---
PT ASSESSMENT COMPLETED AND VSS. MEDS GIVEN ORDERED AND WELL TOLERATED. FALL PRECAUTIONS IN PLACE. VOIDING LARGE AMOUNTS OF YELLOW URINE. ASST WITH REPOSITIION. PT EATING ICE. BARRIER CREAM APPLIED TO RED BOTTOM. SLEEPING ON AND OFF. WILL CONTINUE TO MONITOR FREQUENTLY.
[2020-08-08 07:12] LABS: ALBUMIN 2.8 g/dL (3.4-5.0); CALCIUM 7.9 mg/dL (8.5-10.1); CREATININE 2.7 mg/dL (0.6-1.0); PHOSPHORUS 4.3 mg/dL (2.5-4.9); POTASSIUM 3.3 mmol/L (3.5-5.1)
[2020-08-08 08:00] VITALS: BP 120/68
--- NOTE | 2020-08-08 14:36 | NUR ---
ASSUMED CARES AT 0700. PT AWAKE, ALERT AND ORIENTED*4. C/O FATIGUE AND LACK OF SLEEP FOR TWO NIGHTS. SLEPT SOUNDLY ALL AFTERNOON. VITALS REMAIN STABLE. PT DENIES PAIN. SACRAL WOUND CLEANED AND Z-GUARD APPLIED. PT REFUSED TO PARTICIPATE IN PHYSICAL THERAPY TODAY STATING SHE WAS SLEEPY. UP TO THE BEDSIDE COMMODE WITH 1 MOD ASSIST, GB AND WALKER AND TOLERATED WELL.Q1H VISUAL CHECKS. CALL LIGHT WITHIN REACH. FALL PRECAUTIONS IN PLACE.
[2020-08-08 20:00] VITALS: BP 139/80
--- NOTE | 2020-08-09 04:16 | NUR ---
USING BEDPAN FOR 200 CC, EXTERNAL CATHETER ON PER REQUEST WITH THE HOPE THAT SHE COULD GET SOME SLEEP. STATES SHE HAS NOT BEEN SLEEPING FOR ANY LONG PERIODS TONIGHT. EATING ICE WITH A SPOON OCCASSIONALLY.
[2020-08-09 05:59] LABS: ALBUMIN 2.7 g/dL (3.4-5.0); CALCIUM 7.9 mg/dL (8.5-10.1); CREATININE 2.3 mg/dL (0.6-1.0); PHOSPHORUS 3.7 mg/dL (2.5-4.9); POTASSIUM 3.2 mmol/L (3.5-5.1)
[2020-08-09 07:30] VITALS: BP 124/89
[2020-08-09 09:11] LABS: HEMATOCRIT 39.2 % (37.0-47.0); HEMOGLOBIN 11.9 gm/dL (12.0-15.0); MCHC 30.4 g/dL (28.0-37.0); MCV 75.7 fL (80.0-100.0); RBC 5.18 mil/uL (4.20-5.00); RDW 33.5 % (10.5-14.5); WBC 12.5 thou/uL (4.0-11.0)
--- NOTE | 2020-08-09 10:07 | NUR ---
WOUND CARE NOTE; ALERT, COOPERATIVE, R BUTTOCK WOUND PROBABLY DUE TO SHEARING, ~3CM IN SIZE, ANTWAN, EXCORIATED, NO S/S INFECTION, SCANT DRAINAGE, DENIES PAIN, USING PURE WICK CATH RECOMMENDATIONS; PetraGUARD BID AND PRN, CONT PURE WICK CATH WHEN IN BED, OFF LOADING, TURN S7YEISM WHEN IN BED, LOW AIR LOSS PUMP TO BED, SIT ON WAFFLE CUSHION OR PILLOWS WHEN IN CHAIR LIBRARY SUPERVISOR AWARE
--- NOTE | 2020-08-09 12:23 | NUR ---
Nutrition: pt admitted with medical complexity with general debility to rehab unit. RD received consult related to malnutrition-physician documented-RD will defer. Pt post acute stay for respiratory failure, heart failure. Mild dysphagia per ST. Right buttock wound shearing related. BG 147-269 without hx of DM. A1C 5.6. On Steroid-aggravating BG. Will add carb controlled. Pt agreeable. Stable weights. On Fe+ and folic acid supplementation. Pt is eating well, 75-100% meals past week. Protein foods encouraged for healing. Low risk.
--- NOTE | 2020-08-09 14:31 | NUR ---
ASSUMED CARES AT 0700. PT AWAKE, ALERT AND ORIENTED*4. C/O BLE PAIN, HOSPITALIST AWARE, CONTINUE TO MONITOR. VITALS REMAIN STABLE. CONTINUES TO HAVE BLE EDEMA, ACEWRAPS IN PLACE AND EXTREMITIES ELEVATED. SACRAL WOUND CLEANED AND Z-GUARD APPLIED, PT ENCOURAGED TO REPOSITION SELF AND SHIFT WEIGHT OFF HER BUTTOCKS. UP WITH 1 MIN ASSIST, GB AND WALKER AND TOLERATED WELL. Q1H VISUAL CHECKS. CALL LIGHT WITHIN REACH. FALL PRECAUTIONS IN PLACE. NB: PATEINT YELLING FOR HELP INSTEAD OF USING CALLLIGHT WHICH WAS ON HER LAP STATING THAT SOMEONE TOLD HER NOT TO USE IT.
[2020-08-09 19:32] VITALS: BP 127/65
--- NOTE | 2020-08-10 02:15 | NUR ---
PATIENT REFUSING TO TURN DESPITE ALREADY HAVING REDDENED BUTTOCKS THAT WE ARE TREATING WITH Z-GUARD AND LOW AIR LOSS MATTRESS THERAPY. ENCOURAGED TO SHIFT HER WEIGHT ANY TIME SHE THINKS OF IT. EXTERNAL CATHETER IN PLACE PER PATIENT REQUEST AND WICKING SIGNIFICANT AMOUNT OF URINE.
[2020-08-10 07:23] VITALS: BP 122/81
--- NOTE | 2020-08-10 13:13 | NUR ---
team meeting, reccomendation: will need some assist with pills and bills. need to see if spouse to work with therapy. dc 23, check with spouse to see if he been looking to assisted living. dc hh vs detention. possible could stay untile if going to assisted living. will cont following as needed for dc needs.
--- NOTE | 2020-08-10 18:32 | NUR ---
Alert and oriented X 4. Calm, cooperative and compliant. Stayed in bed most of day. Independent with eating. Breath sounds clear t/o. Reg HR auscultated. Color pink with brisk capillary refill and palpable peripheral pulses. Yellow urine per commode. Active bowel sounds over soft, rounded abdomen. +2 edema to lower extremities, wrapped in gucci bandages per order. Abrasion type wound to R buttock. Cleaned and Zguard applied. BG changed to achs d/t being in 200s over last 24 hrs. Insulin given per sliding scale per order.
[2020-08-10 19:00] VITALS: BP 124/58
--- NOTE | 2020-08-11 01:36 | NUR ---
Assumed care of patient this pm shift. Patient in good spirits, calm and cooperative. Patient takes medications whole in applesauce. Patient is alert and oriented x4. Patient utilizes a wick attached to suction to eliminate excess urine that might be produced while sleeping. Patients assessment shows no signs of acute distress. Falls precautions are in place. Call light present and reachable. Breath sounds clear and diminished in the bases. Heart tones present with auscultation. We will continue to monitor per hospital policy.
[2020-08-11 06:25] LABS: CALCIUM 8.1 mg/dL (8.5-10.1); CREATININE 1.8 mg/dL (0.6-1.0); MAGNESIUM 2.3 mg/dL (1.8-2.4)
[2020-08-11 07:46] VITALS: BP 126/83
--- NOTE | 2020-08-11 08:24 | NUR ---
ASSUMED CARE AT 0700. PATIENT IS ALERT AND ORINETED X4. PATIENT RAMIREZ'S, FLIGHT DIRECTOR ARE EQUAL. LUNGS ARE CLEAR AND DEMINISHED. ABD IS SOFT WITH BSX4. PATIENT HAS FEMALE CATHETER IN PLACE AND IS DRAINING BRANDYN COLORED URINE. FALL AND SAFETY PROTOCOLS IN PLACE. DENIES PAIN AT THIS TIME. CONTINUES TO PROGRESS SLOWLY TOWARDS D/C GOALS. WILL CONTINUE TO MONITER
--- NOTE | 2020-08-11 11:13 | NUR ---
WOUND CONSULT; NO WOUNDS IDENTIFIED. THERE IS ERYTHEMA TO THE BUTTOCKS THAT IS SLOW TO JANINE. THE FORARMS HAVE NO SKIN TEARS. RECOMMENDATIONS; APPLY BARRIER CREAM BID TO BUTTOCKS. LIMIT TIME IN A CHAIR. Q2H TURING WHILE IN BED A MINIMUM. DISCUSSED WITH RN
[2020-08-11 11:31] LABS: HEMATOCRIT 39.5 % (37.0-47.0); HEMOGLOBIN 11.9 gm/dL (12.0-15.0); MCH 22.9 pg (26.0-34.0); MCHC 30.1 g/dL (28.0-37.0); MCV 76.1 fL (80.0-100.0); RBC 5.19 mil/uL (4.20-5.00); RDW 33.7 % (10.5-14.5); WBC 12.1 thou/uL (4.0-11.0)
--- NOTE | 2020-08-11 13:18 | NUR ---
WOUND CARE F/U; THE RIGHT BUTTOCKS WOUND SHOWS IMPROVEMENT AND IS CLINICALLY IMPROVED. THE PATIENT CAN AMBULATE AND TURN HERSELF THEREFORE THE WOUND SHOULD CONTINUE TO IMPROVE. THE WOUND IS SUPEFICIAL. RECOMMENDATIONS; CONTINUE CURRENT TREATMENT.
--- NOTE | 2020-08-11 14:31 | NUR ---
cm visited with spouse stephania, he stated he lonely and was " oh good she gets to come home"/spouse. will cont following as needed for dc needs. therapy reach out to spouse if he is needed for training prior to dc home with hh.
[2020-08-11 19:50] VITALS: BP 121/69
--- NOTE | 2020-08-12 01:54 | NUR ---
TURNING SELF IN BED, APPRECIATES "WICK" EXTERNAL CATHETER OVERNIGHT. AVOIDING STRAWS BY EATING ICE. LOW AIR LOSS MATTRESS THERAPY
[2020-08-12 08:00] VITALS: BP 119/66
--- NOTE | 2020-08-12 12:30 | NUR ---
PATIENT IS ALERT, AND ORIENTED X 3-4, ABLE TO VOICE NEED. LUNGS DIMINISHED, BUT CLEAR TO AUSCULTATION IN ALL LOBE. BES+X4, ABD SOFT, NON-TENDER TO TOUCH. PATIENT TOOK MORNING MEDICATION WHOLE IN [place] WITHOUT DIFFICULTY. PATIENT IS EATING MEALS, AND DRINKING FLUID WELL. PATIENT DENIES HAVING PHYSICAL PAIN. NO SIGN AND SYMPTOMS OF HYPO/HYPERGLYCEMIA NOTED, INSULIN GIVEN PER SLIDING SCALE. NO SIGN OF ACUTE DISTRESS NOTED, CALL LIGHT IN REACH, WILL CONTINUE TO MONITOR.
--- NOTE | 2020-08-12 14:06 | NUR ---
cm visit with odalis at bedside, cm cont to wear face mask and shield during visit. cm re-education on dcp and hh recommendation ( pt, ot, st, sw and nursing). i will get it if i need it when i get home. i am going home, not snf"/odalis. cm education on safe dc, having the support already set up before she going home " i guess just do a good one"/odalis. referral to be sent to [facility]. will cont following as needed for dc needs.
--- NOTE | 2020-08-12 15:36 | NUR ---
FAXED REFERRAL TO [facility] SPOKE WITH SARAH IN INTAKE SHE RECEIVED REFERRAL AND WILL ACCEPT PT WILL NEED PT,OT,ST,NURSING ANTICIPATE DC 08/17.
[2020-08-12 19:33] VITALS: BP 147/81
--- NOTE | 2020-08-13 02:31 | NUR ---
assumed care approx 1900 evening 08/12. pt alert and oriented x4, appropriate and cooperative. pt up to bathroom to void before hs. pt took hs meds with applesauce tolerating well. external catheter placed and connected to suction. pt assisted with repositioning. pt appears to be sleeping soundly off and on with hourly rounding. bed alarm on and call light in reach. will continue to monitor.
[2020-08-13 08:00] VITALS: BP 120/62
--- NOTE | 2020-08-13 10:59 | NUR ---
WOUND CARE F/U; THE RIGHT BUTTOCK WOUND IS STABLE. THE PATIENT REPORTS LESS PAIN. THERE IS NO S/S OF INFECTION. THE PATIENT VERBALIZES AND DEMONSTRATES HOW TO OFFLOAD THIS AREA. THE PATIENT HAS EMBRACED THE MINDSET OF REPOSITIONING. IN MY OPINION THE PATIENT WILL DO WELL WITH MANAGING THIS WHEN SHE LEAVES THE HOSPITAL. NO CHANGES ARE NEEDED. RN PRESENT
--- NOTE | 2020-08-13 16:05 | NUR ---
ASSUMED CARES AT 0700. PT AWAKE, ALERT AND ORIENTED*4. DENIES PAIN. VITALS REMAIN STABLE. CONTINUES TO HAVE BLE EDEMA, LEFT WORSE THAN RIGHT, ACEWRAPS ON FOR 8HRS PER ORDER, EXTREMITIES ELEVATED. SACRAL WOUND CLEANED AND Z-GUARD APPLIED. PT REPOSITIONED NEEDED. Q1H VISUAL CHECKS. CALL LIGHT WITHIN REACH. FALL PRECAUTIONS IN PLACE
--- NOTE | 2020-08-13 16:05 | NUR ---
cm received voice message from farhad crawford " not wanting to get any information about odalis. i am wanting to pass on information to you. call back to [phone]"/farhad. holly called number back, left message for farhad to return cm call.
[2020-08-13 19:14] VITALS: BP 108/58
--- NOTE | 2020-08-14 04:05 | NUR ---
ASSUMED CARE APPROX 1900 EVENING 08/13. PT ALERT AND ORIENTED X4, PLEASANT AND COOPERATIVE. PT UP TO BATHROOM TO VOID BEFORE HS. PT ADVISED TO GET UP TO GO TO THE BATHROOM AND SHE REQUESTED TO HAVE EXTERNAL CATHETER FOR ONE NORE NIGHT AND SOMEWHAT TEARFUL AND ANXIOUS. ADVISED OK FOR ONE MORE NIGHT AND PT AGREED SHE WOULD NOT USE TONIGHT (SAT) AND WILL PREPARE HERSELF FOR GETTING UP. PT APPEARS TO BE SLEEPING SOUNDLY WITH HOURLY ROUNDING CHECKS. BED ALARM ON AND CALL LIGHT IN REACH. WILL CONTINUE TO MONITOR.
[2020-08-14 05:25] LABS: ABSOLUTE NEUTROPHILS 10.2 thou/uL (1.4-8.2); BASOPHILS 0.7 % (0.0-2.0); EOSINOPHILS 3.1 % (0.0-3.0); HEMATOCRIT 32.2 % (37.0-47.0); LYMPHOCYTES 12.1 % (24.0-44.0); MCH 23.3 pg (26.0-34.0); MCHC 30.7 g/dL (28.0-37.0); MCV 76.1 fL (80.0-100.0); MONOCYTES 3.7 % (1.0-8.0); PLATELET COUNT 131 thou/uL (150-400); POLYS 80.4 % (36.0-66.0); RBC 4.24 mil/uL (4.20-5.00); RDW 33.8 % (10.5-14.5); WBC 12.7 thou/uL (4.0-11.0)
[2020-08-14 05:31] LABS: HEMOGLOBIN 9.9 gm/dL (12.0-15.0)
[2020-08-14 06:01] LABS: ALBUMIN 2.5 g/dL (3.4-5.0); CALCIUM 7.6 mg/dL (8.5-10.1); PHOSPHORUS 2.4 mg/dL (2.5-4.9); POTASSIUM 3.8 mmol/L (3.5-5.1)
[2020-08-14 07:15] VITALS: BP 119/63
[2020-08-14 10:59] LABS: HYPOCHROMASIA 3+; MICROCYTES 3+; POIKILOCYTOSIS 1+; TARGET CELLS FEW
--- NOTE | 2020-08-14 13:06 | HC ---
[facility] [place] [address] CONSULTATION Name: LIAN CRUZ Room #: 511-P ADM IN M.R.#: [id number] Admission: 08/06/20 Attend Phys: Allan Yanes MD Discharge: Date of : 34 Report #: [id number] THIS REPORT FOR: cc: Kevin Valerio MD, Christopher B. MD Deutch,Gabriel Gracia. PhD ~ DATE OF SERVICE: 08/07/2020 NEUROBEHAVIORAL STATUS EXAM AGE: 85. ATTENDING PHYSICIAN: Allan Yanes MD NEUROPHYSIOLOGIST: Gabriel Riggins, PhD CLINICAL PRESENTATION: The patient is an 85-year-old female admitted to the rehabilitation unit at [facility] for a comprehensive inpatient rehabilitation program to improve functional mobility, activities of daily living and self-care and mental status secondary to deficits from medical complexity and general debility. She was initially admitted to the hospital on 07/30/2020 with weakness and shortness of breath. Her diagnoses were congestive heart failure and acute hypoxic respiratory failure, sepsis and AFib along with CKD and debility. Her medical problem list included acute anemia, acute congestive heart failure, acute on chronic systolic congestive heart failure, AFib, anemia, chronic kidney disease, atrial fibrillation with RVR, CHF, chronic diastolic congestive heart failure, dehydration, elevated brain natriuretic peptide level, generalized weakness, iron deficiency anemia, nausea, pneumonia, renal insufficiency and under investigation for COVID-19 along with symptomatic anemia and syncope. Her assessment on admission to the rehabilitation unit was medical complexity with generalized debility, acute on chronic diastolic heart failure, sepsis, permanent atrial fibrillation, aortic stenosis, anemia, hypertension, CKD and a recent GI bleed. A complete description of her medical condition and history along with medications can be found in her medical record. Neuropsychological consultation was requested to provide assistance in the assessment of cognitive and emotional status and provide recommendations and services. Prior to this most recent admission, she was living independently in a house with her . The patient reports having driven and managing her own medications. She indicates having been independent with instrumental activities [facility] [address] [place] [address] CONSULTATION Name: LIAN CRUZ Room #: 511-P [facility] IN M.R.#: [id number] Admission: 08/06/20 Attend Phys: Allan Yanes MD Discharge: Date of : 34 Report #: [id number] of daily living. She completed a GED and worked for [employer]. The patient has one daughter living. She had a son that as an infant. She does not report previous treatment for anxiety or depression. TECHNIQUES UTILIZED: Clinical interview, review of medical records, staff consultation and behavioral observation, mini mental status exam 2 standard version and clock drawing. EXAMINATION FINDINGS: The patient was alert and cooperative with the assessment. There is no evidence of aphasia. His thoughts are logical and goal oriented. There is no evidence of thought disorder. She does not report suicidal ideation or auditory/visual hallucinations. She describes her symptoms to include sleep disturbance and anxiety. She is worried about falling. Difficulty with sleep is because she typically would stay awake and sleep during the day. She does not report difficulty with cognitive functioning. Performance on the MMSE 2 brief version is 15/16, which is within normal limits. She was of 25/30 on the standard version, which is a T score of 44 and percentile rank of 27. She was 1/5 for serial 7's. Deficits in sustained concentration are suggested. Clock drawing was within normal limits. She could read and follow single command and accurately copy a simple geometric design. Speech therapy notes indicate a return to baseline level of functioning is within normal limits. DIAGNOSTIC IMPRESSION: Unspecified anxiety disorder. RECOMMENDATIONS: The patient would benefit from continued psychological support in the use of relaxation techniques to help manage anxiety. Return home will likely improve functioning to the extent of a more familiar environment. Her leel of cognition appears to have returned to baseline level and within functional limits. Thank you very much for allowing me to provide the consultation on this patient. <ELECTRONICALLY SIGNED> By: Gabriel Riggins, PhD 08/14/20 1306 [id number] Gabriel Riggins, PhD /nt
[2020-08-14 19:35] VITALS: BP 152/88
--- NOTE | 2020-08-14 20:19 | NUR ---
ASSUMED CARE OF PT AT 0700. PT IS A&OX4 AND VITAL SIGNS ARE STABLE. PT DENIES PAIN. PT ENCOUARGED TO BE OUT OF BED FOR MEALS THIS SHIFT. PT BECAME UPSET AND REFUSED TO BE OUT OF BED OUTSIDE OF THERAPIES AND APPROXIMATELY 15 MINUTES PER MEAL. PT INCONTINENT IN BED X2 AND DID NOT CALL FOR STAFF PRIOR TO INCONTINENCE THIS SHIFT AND REFUSED TO PARTICIPATE IN ANY ADLS WITH NURSING STAFF INCLUDING NIKUNJ CARE AND CLOTHING CHANGE FOLLOWING INCONTINENCE. PT REFUSED CARDIAC DIET AND CHF CARE EDUCATION. ACCU CHECKS ACHS, MANAGED WITH INSULIN. FALL PRECAUTIONS IN PLACE AND NURSING WILL CONTINUE TO MONITOR.
--- NOTE | 2020-08-15 02:51 | NUR ---
PT ASSESSMENT COMPLETED AND VSS. MEDS GIVEN ORDERED AND WELL TOLERATED. FALL PRECAUTIONS IN PLACE. VOIDING LARGE AMOUNT OF YELLOW URINE. ASST WITH REPOSITION USING PILLOWS. BARRIER CREAM APPLIED TO BOTTOM WITH TURNS. SLEEPING MEDICATION GIVEN ORDERED. PT SLEEPING ON AND OFF DURING THE NIGHT. WILL CONTINUE TO MONITOR FREQUENTLY.
[2020-08-15 05:22] LABS: ABSOLUTE NEUTROPHILS 9.9 thou/uL (1.4-8.2); BASOPHILS 0.7 % (0.0-2.0); EOSINOPHILS 2.3 % (0.0-3.0); HEMATOCRIT 31.2 % (37.0-47.0); HEMOGLOBIN 9.7 gm/dL (12.0-15.0); LYMPHOCYTES 13.1 % (24.0-44.0); MCH 23.4 pg (26.0-34.0); MCHC 31.1 g/dL (28.0-37.0); MCV 75.4 fL (80.0-100.0); PLATELET COUNT 129 thou/uL (150-400); POLYS 80.9 % (36.0-66.0); RBC 4.14 mil/uL (4.20-5.00); RDW 33.6 % (10.5-14.5); WBC 12.3 thou/uL (4.0-11.0)
--- NOTE | 2020-08-15 05:26 | NUR ---
PT REFUSED SCDS DURING THE NIGHT.
[2020-08-15 05:38] LABS: CALCIUM 7.6 mg/dL (8.5-10.1); CREATININE 1.8 mg/dL (0.6-1.0); POTASSIUM 3.8 mmol/L (3.5-5.1)
[2020-08-15 07:30] VITALS: BP 122/67
--- NOTE | 2020-08-15 15:06 | NUR ---
ASSUMED CARES AT 0700. PT AWAKE, ALERT AND ORIENTED*4. DENIES PAIN. VITALS REMAIN STABLE. ACEWRAPS TO BLE ON FOR 8HRS, EXTREMITIES ELEVATED. SACRAL WOUND CLEANED AND BARRIER CREAM APPLIED. PT UP IN THE RECLINER OR WHEELCHAIR FOR ALL MEALS. AMBULATED TO THE TOILET WITH GB AND WALKER AND TOLERATED WELL. Q1H VISUAL CHECKS. CALL LIGHT WITHIN REACH. FALL PRECAUTIONS IN PLACE
[2020-08-15 19:45] VITALS: BP 101/49
--- NOTE | 2020-08-16 02:08 | NUR ---
ASSESSMENT COMPLETED. PT HAS BEEN CALLING TO USE THE BATHROOM. UP WITH GAITBELT AND WALKER. BEEN WALKING STEADILY TO THE BATHROOM, JUST REQUIRES TIME. SHE SELF APPLIES ZGURAD TO THE R BUTTOCK WOUND. SHE REFUSED SCDS.VOIDING OKAY WITH SOME FREQUENCY.ON ROOM AIR, NO SOA NOTED WITH EXERTION.NO COUGH NOTED. AFEBRILE. EDEMA TO BLE. NO CONCERNS AT THIS TIME. FALL PREC IN PLACE, CALL LIGHT WITHIN REACH.
[2020-08-16] MEDS ORDERED: DEMADEX20 MG PO (07:56)
[2020-08-16] MEDS ORDERED: K-DUR10 MEQ PO (07:56)
[2020-08-16 08:16] VITALS: BP 126/83
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
--- NOTE | 2020-08-16 10:10 | NUR ---
cm notified by physical therapy that odalis doesnt have walker and will need one. pt ok with anyone getting her a walker. provider [facility] will deliver prior to dc tomorrow. " i might need ride home, car going into the [place] and just need remote before going home, so hopefully in the afternoon tomorrow"/odalis.
[2020-08-16] MEDS ORDERED: MUCINEX600 MG PO (10:45)
[2020-08-16] MEDS ORDERED: TRAZODONE HCL100 MG PO (10:45)
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
--- NOTE | 2020-08-16 14:36 | NUR ---
ASSUMED PT CARE THIS AM. PT VSS, A&OX4. PT HAS FLAT AFFECT. CALLS APPROPRIATELY WHEN NEEDED. Z GUARD PLACED ON BUTTOCK, PT ENCOURAGED TO REPOSITION. GLENN MATTRESS ON. TAKES MEDS WELL IN APPLESAUCE. PT HAS NO COMPLAINTS OF PAIN.
[2020-08-16 19:22] VITALS: BP 123/71
--- NOTE | 2020-08-17 01:53 | NUR ---
CALLING FOR HER ROUTINE MEDS TONIGHT. UP TO TOILET WITH WALKER, GAIT BELT, AND ONE PERSON ASSIST. LOW AIR LOSS THERAPY, REFUSES TURNS, APPLIES Z-GUARD TO HERSELF. STILL HAS BUTTOCK BREAKDOWN, APPEARS TO TO BE MORE MIDLINE THAN LAST WEEK. STATES SHE IS GOING HOME TODAY
[2020-08-17 08:26] VITALS: BP 108/54
[2020-08-17 08:42] VITALS: BP 108/54
--- NOTE | 2020-08-17 11:42 | NUR ---
ASSUMED CARES AT 0700. PT AWAKE, ALERT AND ORIENTED*4. DENIES PAIN AT THIS TIME. VITALS REMAIN STABLE. CONTINUES TO HAVE BLE EDEMA, REFUSED ACEWRAPS TODAY. SACRAL WOUNDS CLEANED AND ZGUARD APPLIED, PT ENCOURAGED TO REPOSITION EVRY 2HRS BUT WHEN REPOSITIONED TURNS BACK ON HER BACK. UP IN THE CHAIR FOR MEALS. AMBULATED TO THE BATHROOM WITH 1 MOD ASSIST. PT TO DC TODAY TO HOME WITH . PT TEACHING TO BE COMPLETED AT THE BEDSIDE BEFORE DC. Q1H VISUAL CHECKS. CALL LIGHT WITHIN REACH. FALL PRECAUTIONS IN PLACE
[2020-08-17 11:56] VITALS: BP 108/54
[2020-08-17] MEDS ORDERED: MECLIZINE HCL25 M1 PO (12:42)
--- NOTE | 2020-08-17 14:25 | NUR ---
PT DISCHARGING TODAY TO HOME WITH [facility] FAXED DC ORDERS/SUMMARY SPOKE WITH SARAH IN INTAKE SHE RECEIVED ORDERS AND WILL CALL PT TO ARRANGE VISITSS.
== END 2020-08-17 13:21 | disposition home health service (06) | DRG 947 ==
PROVIDERS: Internal Medicine; Internal Medicine Nephrology; Nurse Practitioner; Nurse Practitioner Family; ADMIT Physical Medicine & Rehabilitation; ATTEND Physical Medicine & Rehabilitation
DX: R53.81 Other malaise (principal); I50.43 Acute on chronic combined systolic (congestive) and diastolic (congestive) heart failure; J96.01 Acute respiratory failure with hypoxia; A41.9 Sepsis, unspecified organism; J18.9 Pneumonia, unspecified organism; I48.21 Permanent atrial fibrillation; N17.9 Acute kidney failure, unspecified; N18.4 Chronic kidney disease, stage 4 (severe); I13.0 Hypertensive heart and chronic kidney disease with heart failure and stage 1 through stage 4 chronic kidney disease, or unspecified chronic kidney disease; E44.0 Moderate protein-calorie malnutrition; I42.9 Cardiomyopathy, unspecified; D64.9 Anemia, unspecified; F41.9 Anxiety disorder, unspecified; E87.6 Hypokalemia; G47.00 Insomnia, unspecified; K21.9 Gastro-esophageal reflux disease without esophagitis; I08.3 Combined rheumatic disorders of mitral, aortic and tricuspid valves; K57.90 Diverticulosis of intestine, part unspecified, without perforation or abscess without bleeding; T50.2X5A Adverse effect of carbonic-anhydrase inhibitors, benzothiadiazides and other diuretics, initial encounter; E66.01 Morbid (severe) obesity due to excess calories; Z88.2 Allergy status to sulfonamides; Z88.0 Allergy status to penicillin; Z88.6 Allergy status to analgesic agent; Z79.01 Long term (current) use of anticoagulants; Z87.442 Personal history of urinary calculi; Z87.891 Personal history of nicotine dependence; Z68.37 Body mass index [BMI] 37.0-37.9, adult; Y92.89 Other specified places as the place of occurrence of the external cause
CPT/HCPCS: 10112

== ENCOUNTER 2020-10-11 07:17 | Inpatient (IN) | payer OTHER ==
[~2020-10-11] VITALS: Ht 175.3 cm; Wt 119.3 kg
[2020-10-11 07:17] VITALS: BP 125/68
[~2020-10-11 07:17] MED LIST changes: +K-DUR10 MEQ PO; +MECLIZINE HCL25 M1 PO; +TRAZODONE HCL100 MG PO
[2020-10-11 08:54] LABS: URINE BILIRUBIN NEGATIVE (Negative); URINE BLOOD 1+ (Negative); URINE CLARITY CLOUDY; URINE COLOR YELLOW; URINE GLUCOSE-RANDOM* NEGATIVE (Negative); URINE KETONES NEGATIVE (Negative); URINE NITRITE-REFLEX NEGATIVE (Negative); URINE PROTEIN (DIPSTICK) 1+ (Negative); URINE SPECIFIC GRAVITY 1.025 (1.005-1.035); URINE UROBILINOGEN 0.2 E.U./dl (0.2-1.0)
[2020-10-11 08:58] LABS: URINE LEUKOCYTES-REFLEX 2+ (Negative)
[2020-10-11 09:11] LABS: CRYSTALS None Seen /LPF (None Seen); HYALINE CASTS 0-3 Few /LPF (None Seen); SQUAMOUS 0-3 Few /LPF (0-3)
[2020-10-11 09:12] LABS: BACTERIA-REFLEX >30 Many /HPF (None Seen); URINE WBC-REFLEX >25 Many /HPF (0-5)
[2020-10-11 09:13] LABS: URINE RBC 0-2 Rare /HPF (0-2)
[2020-10-11 10:49] LABS: ALBUMIN 2.5 g/dL (3.4-5.0); ANION GAP 13 mmol/L (7-16); BUN 80 mg/dL (7-18); CALCIUM 8.9 mg/dL (8.5-10.1); CHLORIDE 100 mmol/L (98-107); CO2 21 mmol/L (21-32); CREATININE 2.2 mg/dL (0.6-1.0); GLUCOSE 126 mg/dL (74-106); SGOT 36 U/L (15-37); SGPT 19 U/L (14-59); SODIUM 134 mmol/L (136-145); TOTAL PROTEIN 6.5 g/dL (6.4-8.2); TROPONIN-I <0.06 ng/mL (<0.06)
[2020-10-11 10:53] LABS: POTASSIUM 6.3 mmol/L (3.5-5.1)
--- NOTE | 2020-10-11 11:14 | EKG ---
[address] [address] ELECTROCARDIOGRAM REPORT Name: LIAN CRUZ Room #: 170-6 ADM IN M.R.#: [id number] Admission: 10/11/20 Attend Phys: Papito Heath MD Discharge: Date of : 34 Report #: [id number] [facility] ED Test Date: 2020-10-11 Test Time: 07:33:53 Pat Name: LIAN CRUZ Department: Room: 170 Gender: F Thread Drawer: jenniffer : 1935 Requested By: Allan Washburn Order Number: [id number] MD: Noel Hernandez Measurements Intervals [place] Rate: 129 P: [place]: QRS: 143 QRSD: 148 T: -4 QT: 371 QTc: 544 Interpretive Statements Atrial fibrillation LBBB Nonspecific intraventricular conduction delay Compared to ECG 07/31/2020 12:14:29 Intraventricular conduction delay now present Electronically Signed On 10-11-2020 11:14:08 MANAGER COMMERCIAL SALES by Noel Hernandez [email or web address] <ELECTRONICALLY SIGNED> By: Noel Hernandez MD, [facility] 10/11/20 1114 0733 2 Noel Hernandez MD, FACC /EPI
[2020-10-11 13:59] LABS: HEMOGLOBIN 13.2 gm/dL (12.0-15.0); MCH 24.3 pg (26.0-34.0); MCHC 29.4 g/dL (28.0-37.0); MCV 82.8 fL (80.0-100.0); PLATELET COUNT 151 thou/uL (150-400); RBC 5.44 mil/uL (4.20-5.00); RDW 25.8 % (10.5-14.5); WBC 18.7 thou/uL (4.0-11.0)
[2020-10-11 14:43] LABS: ABSOLUTE NEUTROPHILS 16.8 thou/uL (1.4-8.2); ANISOCYTOSIS 1+; NUCLEATED RBCS 2 /100WBC
--- NOTE | 2020-10-11 16:44 | NUR ---
85-year-old female patient who lives at home with her . The patient came to the ED for progressive weakness over the last few days to weeks and she has continued to be more dependent and unable to keep up with her normal ADL's. The patient lives at home with her spouse whom she states has been unable to care for her and her inactivity has also led to pressure sores on her back and bottom. COVID PCR NEGATIVE per ED PCR on 10-11-20 at 0826. The patient has been admitted to a hospitalist with UTI, Deconditioning, Chronic A-fib now with RVR, Mild sepsis and dehydration. The patients spouse Verna Ko at [phone] is listed as next of kin and green party of notification. Last see by CM at [facility] on 08-17-2020 and discharged home with [facility]. CM will follow for discharge needs.
[2020-10-11 18:25] VITALS: BP 92/67
--- NOTE | 2020-10-11 18:57 | NUR ---
FILAMENT CUTTER SPOKE WITH DR KRAFT REGARDING CARDIZEM DRIP FOR IN PATIENT PLACEMENT. DRIP NOT TO BE CONTINUED, NEW ORDER FOR CARDIZEM PO 180 MG STAT AND DAILY FROM TOMORROW.
[2020-10-11 19:00] VITALS: BP 108/55
[2020-10-11 19:34] VITALS: BP 81/48; BP 98/48
[2020-10-12] VITALS (33 sets, daily range): BP systolic 75–112; BP diastolic 34–68
--- NOTE | 2020-10-12 04:30 | NUR ---
VSS-AFEBRILE. DIFFICULTY KEEPING IV PATENT. 22 GAUGE IN RIGHT HAND STARTED AFTER 3 IV'S INFILTRATED. DIFFICULTY KEEPING PAIN CONTROLLED IV'S WERENT GOOD AND PAIN MEDICATION NOT ALWAYS DELIVERED. PAIN RATED AT 7/10 NOW IV IS PATENT. ALERT AND ORIENTED X 4, LUNGS DIMINISHED IN ALL ACUNA BILATERALLY. REMAINS ON ROOM AIR. AFIB WITH RATES FROM 88-115. SCD'S IN PLACE. EDEMATOUS IN UPPER AND LOWER EXTREMITIES, ELEVATED TO EASE SWELLING. LEFT ARM IS WEEPING SMALL AMOUNT OF SEROUS FLUID. PRESSURE WOUND ON SACRUM, PICTURE TAKEN, BARRIER CREAM APPLIED. TURNED AND OFFERED ORAL HYDRATION EVERY TWO HOURS. EXCORIATED UNDER BREASTS AND UNDER PANNUS, BARRIER CREAM APPLIED. ADMISSION PAPERWORK NOT SIGNED TO TO WEAKNESS AND INABILITY TO SIGN. FALL PRECAUTIONS IN PLACE.
[2020-10-12 05:10] LABS: CREATININE 2.6 mg/dL (0.6-1.0)
[2020-10-12 05:23] LABS: HEMATOCRIT 38.2 % (37.0-47.0); MCH 24.5 pg (26.0-34.0); MCHC 29.2 g/dL (28.0-37.0); MCV 83.7 fL (80.0-100.0); RBC 4.57 mil/uL (4.20-5.00); RDW 25.1 % (10.5-14.5); WBC 18.7 thou/uL (4.0-11.0)
[2020-10-12 05:26] LABS: HEMOGLOBIN 11.2 gm/dL (12.0-15.0)
[2020-10-12 05:33] LABS: POTASSIUM 6.1 mmol/L (3.5-5.1)
--- NOTE | 2020-10-12 10:45 | NUR ---
THIS RN ATTEMPTED TO CALL PT RN TO CLARIFY VAT ORDER BY DR KRAFT. NO ANSWER' ORDER FOR MIDLINE AND PT CR 2.6. WILL NEED NEPHROLOGY TO OKAY MIDLINE. WILL ATTEMPT TO CALL RN BACK AGAIN.
[2020-10-12 12:09] LABS: URINE BILIRUBIN NEGATIVE (Negative); URINE BLOOD 2+ (Negative); URINE CLARITY TURBID; URINE COLOR YELLOW; URINE GLUCOSE-RANDOM* NEGATIVE (Negative); URINE KETONES TRACE (Negative); URINE LEUKOCYTES 3+ (Negative); URINE NITRITE NEGATIVE (Negative); URINE PROTEIN (DIPSTICK) 2+ (Negative); URINE SPECIFIC GRAVITY 1.025 (1.005-1.035); URINE UROBILINOGEN 0.2 E.U./dl (0.2-1.0)
[2020-10-12 12:30] LABS: SQUAMOUS 0-3 Few /LPF (0-3)
[2020-10-12 12:31] LABS: BACTERIA 1-9 Few /HPF (None Seen); CASTS None Seen /LPF (None Seen); URINE RBC None Seen /HPF (0-2); URINE WBC >25 Many /HPF (0-5)
[2020-10-12 12:32] LABS: CRYSTALS None Seen /LPF (None Seen)
[2020-10-12 12:43] LABS: CALCIUM 8.2 mg/dL (8.5-10.1); CREATININE 2.7 mg/dL (0.6-1.0); POTASSIUM 5.8 mmol/L (3.5-5.1)
--- NOTE | 2020-10-12 13:05 | NUR ---
ASSUMED PT CARE THIS AM. PT BLOOD PRESSURE LOW, ALERTED DR AND ORDERED FLUIDS BOLUS. PT ALERT AND RESPONDING TO QUESTIONS. IV PATENT, BUT DR ORDERED CENTRAL LINE TO BE PLACED. DUFF CATHETER PLACED. NO PAIN NOTED. UA SENT DOWN. PT QUALIFIES FOR SEPSIS PROTOCOL, MADE AWARE. AWAITING ORDERS.
--- NOTE | 2020-10-12 13:29 | NUR ---
VAT CONSULTED FOR CVL PLACEMENT. RIGHT IJ 6FR TL JACC CATHETER PLACED, DOCUMENTED. TRIMMED 25 AND 5 EXTERNAL. CXR ORDERED FOR TIP LOCATION CONFIRMATION. PT TOLERATED WELL.
--- NOTE | 2020-10-12 13:44 | NUR ---
RADIOLOGY DICTATED REPORT THAT CVL TIP OVERLIES SVC. NO PNEUMO. MAY USE LINE, PER HOSPITAL POLICY. NOTIFIED HILDA FARRELL.
--- NOTE | 2020-10-12 13:55 | NUR ---
PT ADMITTED RELATED TO AIFB WITH RVR, FLUID OVERLOAD. CM REVIEWED CHART AND SPOKE WITH CARE TEAM. CM CALLED PT'S SPOUSE THIS AM AND THE CONNECTION WAS SO BAD WE WEREN'T ABLE TO HEAR ON ANOTHER. CM INDICATED TCM WOULD CALL BACK. CARE TEAM CALLED A RAPID ON PT THIS AFTERNOON AROUND 1345. CM CALLED PT'S SPOUSE AGAIN AND INDICATED THAT PT WAS IN SOME DISTRESS CURRENTLY AND THAT CARE TEAM WERE IN TENDING TO HER. CM INDICATED THAT PLAN IS TO MOVE PT TO ICU ONCE A BED IS OPEN. PT'S SPOUSE INDICATED THAT HE DIDN'T WANT TO SPEAK ANY LONGER THAT HE WAS NOW UPSET AND ASKED THAT I CALL ANOTHER TIME. CM TO FOLLOW INDICATED WITH DC PLANNING.
[2020-10-12 14:14] LABS: BE(vivo) -12.3 mmol/L (-2 to +3); HCO3 18.7 mmol/L (22.0-26.0); PO2 263.1 mmHg (80.0-100.0); sO2 99.3 % (92.0-98.0)
[2020-10-12 14:15] LABS: pH 7.057 (7.360-7.450)
[2020-10-12 15:06] LABS: CALCIUM 8.1 mg/dL (8.5-10.1); CREATININE 2.8 mg/dL (0.6-1.0); POTASSIUM 5.7 mmol/L (3.5-5.1)
--- NOTE | 2020-10-12 15:26 | EKG ---
[address] [address] ELECTROCARDIOGRAM REPORT Name: LIAN CRUZ Room #: 462-P ADM IN M.R.#: [id number] Admission: 10/11/20 Attend Phys: Papito Heath MD Discharge: Date of : 34 Report #: [id number] [facility] Test Date: 2020-10-12 Test Time: 13:53:50 Pat Name: LIAN CRUZ Department: Room: 462 Gender: F Vice President Medical Affairs: Ruy MEJIA : 1935 Requested By: Papito Heath Order Number: [id number] MD: Noel Hernandez Measurements Intervals [place] Rate: 118 P: [place]: QRS: 147 QRSD: 152 T: -14 QT: 374 QTc: 525 Interpretive Statements Atrial fibrillation Nonspecific intraventricular conduction delay Compared to ECG 10/11/2020 07:33:53 Left bundle-branch block no longer present Electronically Signed On 10-12-2020 15:25:57 JEWELRY FINISHER by Noel Hernandez [email or web address] <ELECTRONICALLY SIGNED> By: Noel Hernandez MD, [facility] 10/12/20 1525 1353 1353 Noel Hernandez MD, FACC /EPI
[2020-10-12 16:04] LABS: BE(vivo) -7.9 mmol/L (-2 to +3); HCO3 21.4 mmol/L (22.0-26.0); PCO2 61.4 mmHg (35.0-45.0); PO2 131.6 mmHg (80.0-100.0); sO2 97.7 % (92.0-98.0)
--- NOTE | 2020-10-12 17:10 | NUR ---
1520-RECEIVED PT INTO 243 FROM 4W p BELT NOTCHER CALLED. TRANSF W FULL MONITORING BY HOUSE NESS. LEVO @ 2MCG/MIN. BIPAP 40%, 18/20 W RATE 16.FINGERS PURPLE. FEET DARK PURPLE BOTH PLANTAR ASPECTS. TOES PURPLE. LEGS MOTTLED UP PAST KNEES. SKIN COLD-UTO TEMP.CHARLENE HUGGER APPLIED p COMPLETE BATH.INCONT ON ARRIVAL LG AMT STOOL.SKIN HAD BEEN CLAMMY,NOTHING STICKING TO PT. ONLY ABLE TO PALPATE FEM PULSES BILAT. RADIAL & FEM PULSES WEAK & THREADY. NO DOPPLED SIGNALS PAST FEMORAL'S.--VW
[2020-10-12 17:11] LABS: PROT/CREAT RATIO 2.8; URINE CREATININE-RANDOM* 132.4 mg/dL; URINE PROTEIN-RANDOM* 374.9 mg/dL (<11.9)
[2020-10-12 20:29] LABS: BE(vivo) -7.7 mmol/L (-2 to +3); HCO3 19.5 mmol/L (22.0-26.0); PCO2 46.4 mmHg (35.0-45.0); PO2 102.2 mmHg (80.0-100.0); sO2 96.7 % (92.0-98.0)
[2020-10-12 20:31] LABS: pH 7.241 (7.360-7.450)
--- NOTE | 2020-10-12 23:53 | NUR ---
ASSUMED CARE AT 1900. AMIO BOLUS COMPLETE, AMIO GTT INFUSING AT 33 ML/HR, WILL DECREASE BY HALF AT 0100. AXILLARY TEMPS 93 DEG WIH BAREHUGGER IN PLACE, RECTAL THERMOMETER PLACED. CONTINUES TO HAVE PURPLE DISCOLORATION TO FINGERS, TOES, AND SOLES OF FEET, EXTREMETIES WARM, NO MOTTLING NOTED. PT WILL WAKE UP AND YELL WHEN TOUCHED; RANDOM MOVEMENT OF HANDS. 2034-SPOKE TO DR. SANTOS REGARDING SCANT URINE OUTPUT, LOW BP, AND HIGH HR; HE ORDERED ANOTHER NS BOLUS AND CONTINUE CURRENT MAINTENCE FLUIDS, AND HE WOULD ADDRESS OTHER CONCERNS IN THE AM. 2054-SPOKE TO DR. IVEY ABOUT CRITICAL ABG. SINCE LABS WERE IMPROVING, NO NEW ORDERS RECEIVED.
[2020-10-13] VITALS (38 sets, daily range): BP systolic 73–148; BP diastolic 32–72
[2020-10-13 05:21] LABS: CALCIUM 7.8 mg/dL (8.5-10.1); CREATININE 2.9 mg/dL (0.6-1.0); HEMOGLOBIN 10.7 gm/dL (12.0-15.0); POTASSIUM 5.5 mmol/L (3.5-5.1)
[2020-10-13 05:23] LABS: MCH 24.2 pg (26.0-34.0); MCHC 29.8 g/dL (28.0-37.0); MCV 81.3 fL (80.0-100.0); RBC 4.43 mil/uL (4.20-5.00); RDW 25.5 % (10.5-14.5); WBC 18.4 thou/uL (4.0-11.0)
--- NOTE | 2020-10-13 10:05 | NUR ---
ASSUMED CARE OF PT AT 0700. PT IS VERY UNSTABLE AND REQUIRING MORE AND MORE LEVOPHED TO MAINTAIN PRESSURES. SHE WAS TRYING TO TALK TO ME SO I TOOK HER BIPAP OFF FOR A SECOND AND SHE SAID "I WANT TO ".
--- NOTE | 2020-10-13 13:49 | NUR ---
Case discussed with the care team, katie and SAUSAGE MAKER. Pt now on comfort measures. DNR in place. The attending contacted pt's spouse Moise this morning to discuss palliative care recommendations. Will remain available for support as needed.
--- NOTE | 2020-10-13 14:09 | NUR ---
THIS NUCLEAR PLANT INSTRUMENT TECHNICIAN REMEMBERED THE PT. FROM REHAB. STAFF SAID THE HAS DEMENTIA AND WILL NOT HELP. THIS NUCLEAR PLANT INSTRUMENT TECHNICIAN CHECKED NOTES FROM REHAB AND FOUND THE [id number]'S NAME AND PHONE NUMBER AND PASSED IT ON TO ICU C.M.
--- NOTE | 2020-10-13 16:22 | NUR ---
assumed care at 1600. pt is not arouse but only with pain. pt has nelson in place. Pt moans when she is being moved. Heart sounds are distant and regular. lungs sounds are clear and diminished. fall precaution. call light within reach. keeping pt comfortable. abd is obese and soft. will continue to monitor pt.
--- NOTE | 2020-10-14 02:25 | NUR ---
ASSUMED PT CARE FROM [facility] NURSE. WAS INFORMED THE PT IS ON COMFORT CARE. PT IS NON RESPONSIVE. FAMILY IN THE ROOM AT THE BEGINING OF THE SHIFT. PT IS A MOUTH BREATHER. RESPIRATIONS ARE 8 A MINUTE. O2 WAS 74%. FREQUENT CHECKS DONE ON PT.
--- NOTE | 2020-10-14 09:41 | NUR ---
THIS VIDEO SYSTEM REPAIRER REACHED HER , KEVIN. IT WAS EXPRESSED TO ME THAT HE MIGHT BE IN A DIFFICULT SITUATION AT HIS HOME. HE APPARENTY HAS NO PLANS TO COME SEE HIS DYING . A CONCERNED CALL HAD BEEN DOCUMENTED ON 2019, FROM HER [id number] TO THE REHAB RN LACTATION. IT WAS SUGGESTED TO THIS VIDEO SYSTEM REPAIRER TO CALL HER AND SEE IF THERE WAS ANYONE ELSE THAT COULD BE CONTACTED TO SEE LIAN BEFORE SHE DIES. THE OF THE PATIENT SAID: "LIAN IS GOING TO IN A DAY OR TWO. "I WOULD BE ILL ADVISED TO CALL ANYONE OR HER SISTER IN LAW." THIS VIDEO SYSTEM REPAIRER THANKED HIM FOR HIS TIME.
--- NOTE | 2020-10-14 10:21 | NUR ---
Nutrition follow-up: Pt noted to be on comfort measures, confirmed with nursing staff. No further nutritional interventions planned at this time unless otherwise consulted. RD will remain available.
--- NOTE | 2020-10-14 14:07 | NUR ---
Assumed care of pt at 0700. Pt on comfort care. Morphine administered for comfort. Pt does not seem in pain or distress at this time. Will continue to monitor.
[2020-10-14 15:42] VITALS: BP 78/41
--- NOTE | 2020-10-14 22:51 | NUR ---
PT WAS OBSERVED LYING DOWN ON HER BED WITH ER EYES CLOSED AT START OF SHIFT.PT SEEMED COMFORTABLE.DUFF CATH TO DD.PT ON 2L/NC.PT'S BREATHING LABORED.HOB ELEVATED.
[2020-10-15 11:00] VITALS: BP 76/30
--- NOTE | 2020-10-15 12:08 | NUR ---
ASSUMED PT CARE THIS AM. PT GIVEN PAIN MED THIS MORNING, SLEEPING AT THIS TIME. PT DOES NOT OPEN EYES WHEN TALKED TO. GENERALIZED EDEMA NOTED. EXTREMITIES ELEVATED. FALL PRECAUTIONS IN PLACE. ON OXYGEN VIA NASAL CANNULA. PT BEING REPOSITIONED ACCORDINGLY.
--- NOTE | 2020-10-15 12:48 | NUR ---
ON-GOING ASSESSMENT: CM REVIEWED CHART AND SPOKE WITH ATTENDING. ATTENDING STATING PT COULD LIKELY TRANSITION TO HOSPICE HOUSE. CM CONTACTED PTS SPOUSE KEVIN TO DISCUSS HOSPICE HOUSE AND BEING EVALUATED. HE STATES THAT HE PREFER THAT PT IS AB[facility] W[facility]. HE REPORTS IF THERE IS NOT MUCH PROCESS DEVELOPMENT ASSOCIATE THE WEEKEND THEN HE WOULD POSSIBLY BE AGREEABLE TO LOOK AT HOSPICE HOUSE SUNDAY IF POSSIBLE. CM NOTIFIED ATTENDING WHO IS AGREEABLE WITH THE PLAN. bedside rn notified. PT WILL REMAIN ON COMFORT CARE.
[2020-10-15 16:19] VITALS: BP 76/30; BP 79/46
[2020-10-15 19:58] VITALS: BP 86/46
--- NOTE | 2020-10-16 04:59 | NUR ---
PT CONTINUES ON COMFORT CARE, REMAINS NPO. PT NOTED TO RESPOND TO VERBAL AND TACTILE STIMULATION WITH MOANING AND INCREASED RESTLESSNESS. FLACC OF 2-3 PT OBSERVED WITH INTERMITTENT GRIMACE, MOANING/GROANING, INTERMITTENT TENSING, AND RESTLESSNESS. PT RECEIVING PRN IV MORPHINE Q1HR WITH PRN PO/SL ROXANOL Q1HR AVAILABLE. PT NOTED TO HAVE HALF OPENED EYES, SUNKEN FACE APPEARANCE, AND EARS PINNING. PT NOTED TO HAVE SHALLOW RESPIRATIONS WITH PERIODS OF APNEA BETWEEN 5-10SEC. PT ASSESSED WITH GENERALIZED PITTING EDEMA THROUGHOUT AND MOTTLED SKIN THROUGHOUT, MORE PRONOUCED IN BOTH HANDS AND FEET. SKIN COOL TO TOUCH, UNABLE TO PALPATE PEDAL PULSES. PT WITH FREQUENT EPISODES OF TERMINAL RESTLESSNESS OBSERVED BY SHAKING HEAD, AIR GRABBING, MOANING/GROANING. ONCALL [facility] ARCHITECT NOTIFIED PRN PO/SL ATIVAN ONLY AVAILABLE WHEN REQUESTED VIA INHOUSE PHARMACY DELIVERY, RECEIVED ORDERS FOR PRN IV ATIVAN Q1HR. FREQUENT REPOSITIONING ENCOURAGED, PT NOTED TO HAVE INCREASE IN PAIN OBSERVED BY SCREAMING INSTEAD OF MOANING/GROANING WHEN REPOSITIONED TO RIGHT AND LEFT SIDE. REPOSITIONING CONTINUED PER DISCRETION. PT ROOM REMAINS NEAR NURSES STATION, FREQUENT MONITORING WILL CONTINUE.
--- NOTE | 2020-10-16 13:47 | NUR ---
Assumed pt care this am, pt is unresponsive, maintained on comfort care. Intermittent grimace, moaning and groaning noted. Eyes are half open, generalized edema noted. On 2l of O2 via NC, Fc in place. Family at the bedsise. POC followed
== END 2020-10-16 16:50 | DRG 871 ==
LOC: ER 07:17 → EROBS 11:08 → ICU 11:08 → 4W 11:08 → ICU 10-12 15:34 → 4S 10-13 16:17
PROVIDERS: Emergency Medicine; Internal Medicine Nephrology; Internal Medicine Pulmonary Disease; ADMIT Hospitalist; ATTEND Hospitalist
DX: A41.9 Sepsis, unspecified organism (principal); J96.21 Acute and chronic respiratory failure with hypoxia; J96.22 Acute and chronic respiratory failure with hypercapnia; I50.23 Acute on chronic systolic (congestive) heart failure; R65.21 Severe sepsis with septic shock; G92 Toxic encephalopathy; N39.0 Urinary tract infection, site not specified; N17.9 Acute kidney failure, unspecified; I13.0 Hypertensive heart and chronic kidney disease with heart failure and stage 1 through stage 4 chronic kidney disease, or unspecified chronic kidney disease; I48.21 Permanent atrial fibrillation; I42.9 Cardiomyopathy, unspecified; Z20.822 Contact with and (suspected) exposure to COVID-19; E66.9 Obesity, unspecified; E86.0 Dehydration; E87.5 Hyperkalemia; E78.5 Hyperlipidemia, unspecified; I95.9 Hypotension, unspecified; I08.3 Combined rheumatic disorders of mitral, aortic and tricuspid valves; Z51.5 Encounter for palliative care; L89.152 Pressure ulcer of sacral region, stage 2; N18.32 Chronic kidney disease, stage 3b; R34 Anuria and oliguria; Z66 Do not resuscitate; Z88.2 Allergy status to sulfonamides; Z88.8 Allergy status to other drugs, medicaments and biological substances; Z87.442 Personal history of urinary calculi; Z68.38 Body mass index [BMI] 38.0-38.9, adult; Z88.0 Allergy status to penicillin; Z87.891 Personal history of nicotine dependence; Z79.01 Long term (current) use of anticoagulants; Z82.49 Family history of ischemic heart disease and other diseases of the circulatory system; Z79.899 Other long term (current) drug therapy; Z87.01 Personal history of pneumonia (recurrent)
CPT/HCPCS: 10040; 10078; 10195